=== PATIENT | female | born 1975 | race African-American/Black ===

== ENCOUNTER 2021-05-01 14:26 | Emergency (ER) | payer MEDICAID ==
[~2021-05-01] VITALS: Ht 167.6 cm; Wt 82.1 kg
[2021-05-01 14:26] VITALS: BP 120/85
== END 2021-05-01 18:27 | disposition left against medical advice (07) ==
LOC: ER 14:26
DX: F41.9 Anxiety disorder, unspecified (principal); Z53.21 Procedure and treatment not carried out due to patient leaving prior to being seen by health care provider

== ENCOUNTER 2021-11-09 11:46 | Emergency (ER) | payer MEDICAID ==
[~2021-11-09] VITALS: Ht 167.6 cm; Wt 81.6 kg
[2021-11-09] MEDS ORDERED: SODIUM CHLORIDE 0.9% 500 ML IVB ONE (12:00)
[2021-11-09] MEDS ORDERED: diphenhdrAMINE HCL 50 MG/1 ML VL IV ONE (12:00)
[2021-11-09] MEDS ORDERED: LORazepam 2MG/ML-1ML VIAL IV ONE (12:00)
[2021-11-09] MEDS ORDERED: HALOPERIDOL LACTATE 5 MG/ML INJ VIAL IM ONE (12:00)
[2021-11-09 13:17] LABS: Basophils # (auto) 0.1 10 ^3/uL (0-0.2); Eosinophils # (auto) 0 10 ^3/uL (0-0.8); Eosinophils % (auto) 0.2 % (0.0-7.0); Lymphocytes # (auto) 2.3 10 ^3/uL (0.4-5.4); Neutrophils % (auto) 76.5 % (37.0-80.0); Red Cell Distribution Width 17.4 % (11.8-14.3)
[2021-11-09 13:19] LABS: Basophils % (auto) 0.6 % (0.0-2.0); Hemoglobin 9.7 g/dL (12.2-16.2); Lymphocytes % (auto) 15.5 % (10.0-50.0); Mean Corpuscular Hemoglobin 24.5 pg (28.0-32.0); Mean Corpuscular Hgb Conc. 31.2 g/dL (32.0-36.0); Mean Corpuscular Volume 78.6 fL (80.0-100.0); Monocytes # (auto) 1.1 10 ^3/uL (0-1.3); Monocytes % (auto) 7.2 % (0.0-12.0); Neutrophils # (auto) 11.3 10 ^3/uL (1.6-8.6); Red Blood Cells 3.94 10^6/uL (4.0-5.20); White Blood Cell 14.7 10^3/uL (4.4-10.8)
[2021-11-09 13:45] LABS: Acetaminophen < 2.0 ug/mL (10-30); Salicylate 3.6 mg/dL (2.8-20.0)
[2021-11-09 13:46] LABS: Alanine Aminotransferase 22 U/L (13-56); Albumin 3.3 g/dL (3.4-5.0); Anion Gap 7 (5-15); Aspartate Aminotransferase 26 U/L (15-37); BUN/Creatinine Ratio 12.2; Blood Alcohol < 3.0 mg/dL (0-5); Blood Urea Nitrogen 10 mg/dL (7-18); Calcium 8.8 mg/dL (8.5-10.1); Carbon Dioxide 23 mmol/L (21-32); Chloride 113 mmol/L (98-107); GFR African American 97 mL/min; GFR Non-African American 80 mL/min; Glucose 82 mg/dL (74-106); Magnesium 2.1 mg/dL (1.6-2.6); Potassium 3.4 mmol/L (3.5-5.1); Sodium 143 mmol/L (136-145)
[2021-11-09 13:49] LABS: Alkaline Phosphatase 90 U/L (45-117); Bilirubin, Total 0.2 mg/dL (0.2-1.0); Total Protein 6.9 g/dL (6.4-8.2)
[2021-11-09 14:45] LABS: Amphetamine Screen, Urine POSITIVE (NEGATIVE); Barbiturate Scree,Urine NEGATIVE (NEGATIVE); Benzodiazephine Screen, Urine NEGATIVE (NEGATIVE); Cocaine Screen, Urine NEGATIVE (NEGATIVE); Opiate Scree,Urine NEGATIVE (NEGATIVE); Phencyclidine Screen, Urine POSITIVE (NEGATIVE)
[2021-11-09 14:54] LABS: Cannabinoid Screen, Urine POSITIVE (NEGATIVE)
[2021-11-09 14:57] LABS: Urine Bacteria NONE SEEN /hpf (None Seen); Urine Blood TRACE /uL (Negative); Urine Specific Gravity 1.009 (1.001-1.035); Urine WBC <1 /hpf (0 - 5)
[2021-11-09] MEDS ORDERED: KETOROLAC TROMETH 30 MG/ML 1ML VIAL IV ONE (20:30)
[2021-11-10 01:00] VITALS: BP 129/82
== END 2021-11-10 00:48 | disposition home or self-care (01) ==
LOC: EDBD 11:46 → ER 11:46
DX: S80.02XA Contusion of left knee, initial encounter (principal); S80.01XA Contusion of right knee, initial encounter; S20.229A Contusion of unspecified back wall of thorax, initial encounter; T50.901A Poisoning by unspecified drugs, medicaments and biological substances, accidental (unintentional), initial encounter; F12.10 Cannabis abuse, uncomplicated; F15.10 Other stimulant abuse, uncomplicated; I10 Essential (primary) hypertension; Z90.49 Acquired absence of other specified parts of digestive tract; V89.2XXA Person injured in unspecified motor-vehicle accident, traffic, initial encounter; Y93.89 Activity, other specified; Y92.89 Other specified places as the place of occurrence of the external cause; Y99.8 Other external cause status
CPT/HCPCS: 36415; 72131; 73560; 80053; 80307; 80320; 80329; 81001; 81025; 83735; 85025; 93005; 96361; 96372; 96374; 96375; 99285; J1200; J1630; J1885; J2060; J7030

== ENCOUNTER 2021-11-10 03:34 | Emergency (ER) | payer MEDICAID ==
[~2021-11-10] VITALS: Ht 167.6 cm; Wt 72.6 kg
[2021-11-10 07:38] LABS: Acetaminophen < 2.0 ug/mL (10-30); Salicylate 3.2 mg/dL (2.8-20.0)
[2021-11-10 11:25] LABS: Alcohol, Urine < 3.0 mg/dL (0-10); Amphetamine Screen, Urine POSITIVE (NEGATIVE); Barbiturate Scree,Urine NEGATIVE (NEGATIVE); Benzodiazephine Screen, Urine NEGATIVE (NEGATIVE); Cannabinoid Screen, Urine POSITIVE (NEGATIVE); Cocaine Screen, Urine NEGATIVE (NEGATIVE); Opiate Scree,Urine NEGATIVE (NEGATIVE); Phencyclidine Screen, Urine POSITIVE (NEGATIVE)
[2021-11-11] MEDS ORDERED: LORazepam 2MG/ML-1ML VIAL IM ONE (01:00)
[2021-11-11] MEDS ORDERED: SODIUM CHLORIDE 0.9% 1,000 ML IVB ONE (08:45)
[2021-11-11] MEDS ORDERED: SODIUM CHLORIDE 0.9% 1,000 ML IV ONE (08:45)
[2021-11-11] MEDS ORDERED: TETANUS-DIPTH-ACEL PERTUSSIS 0.5ML SYR Tdap IM ONE (09:45)
[2021-11-11 09:46] LABS: Basophils # (auto) 0.1 10 ^3/uL (0-0.2); Monocytes # (auto) 0.9 10 ^3/uL (0-1.3); Neutrophils # (auto) 5.7 10 ^3/uL (1.6-8.6); Nucleated Red Blood Cells % 0.1 %; White Blood Cell 10.3 10^3/uL (4.4-10.8)
[2021-11-11 09:49] LABS: Basophils % (auto) 1.1 % (0.0-2.0); Eosinophils # (auto) 0.3 10 ^3/uL (0-0.8); Eosinophils % (auto) 3.1 % (0.0-7.0); Hematocrit 31.3 % (36.0-46.0); Hemoglobin 9.8 g/dL (12.2-16.2); Lymphocytes # (auto) 3.3 10 ^3/uL (0.4-5.4); Lymphocytes % (auto) 32.1 % (10.0-50.0); Mean Corpuscular Hemoglobin 24.8 pg (28.0-32.0); Mean Corpuscular Hgb Conc. 31.5 g/dL (32.0-36.0); Mean Corpuscular Volume 78.9 fL (80.0-100.0); Monocytes % (auto) 8.4 % (0.0-12.0); Neutrophils % (auto) 55.3 % (37.0-80.0); Red Blood Cells 3.97 10^6/uL (4.0-5.20); Red Cell Distribution Width 18.1 % (11.8-14.3)
[2021-11-11 09:59] LABS: Albumin 2.7 g/dL (3.4-5.0); BUN/Creatinine Ratio 14.1; Calcium 8.2 mg/dL (8.5-10.1); Magnesium 2.5 mg/dL (1.6-2.6); Potassium 3.8 mmol/L (3.5-5.1)
[2021-11-11 10:04] LABS: Bilirubin, Total 0.3 mg/dL (0.2-1.0); Total Protein 6.1 g/dL (6.4-8.2)
[2021-11-11 10:16] LABS: Beta HCG, Quantitative < 1 mlU/mL (1-3); Thyroid Stimulating Hormone 0.38 uIU/mL (0.358-3.74)
[2021-11-11] MEDS ORDERED: LORazepam 0.5 MG TAB PO ONE (20:45)
[2021-11-11] MEDS ORDERED: LORazepam 2MG/ML-1ML VIAL IV ONE (23:45)
[2021-11-12 00:53] LABS: Urine Bacteria NONE SEEN /hpf (None Seen); Urine Blood Negative /uL (Negative); Urine Mucus FEW (None Seen); Urine Specific Gravity 1.022 (1.001-1.035); Urine WBC 8 /hpf (0 - 5)
[2021-11-12] MEDS ORDERED: LORazepam 0.5 MG TAB PO ONE (16:00)
[2021-11-12] MEDS ORDERED: ACETAMINOPHEN 500 MG TAB PO ONE (16:00)
[2021-11-13] MEDS ORDERED: LORazepam 2MG/ML-1ML VIAL IV ONE ×2 (01:45→21:45)
[2021-11-13] MEDS ORDERED: ACETAMINOPHEN 325 MG TAB PO ONE ×2 (21:45→21:46)
[2021-11-13] MEDS ORDERED: LORazepam 2MG/ML-1ML VIAL ONE (21:46)
[2021-11-14 09:38] VITALS: BP 100/73
[2021-11-14] MEDS ORDERED: NITROFURANTOIN 100 mg CAP PO ONE (10:00)
[2021-11-14] MEDS ORDERED: NITROFURANTOIN 100 mg CAP PO SCH (10:37)
== END 2021-11-14 20:10 | disposition left against medical advice (07) ==
LOC: ER 03:34 → EDBD 03:34 → ER 20:21
DX: R45.851 Suicidal ideations (principal); I10 Essential (primary) hypertension; F20.9 Schizophrenia, unspecified; F17.210 Nicotine dependence, cigarettes, uncomplicated; Z90.49 Acquired absence of other specified parts of digestive tract; Z20.822 Contact with and (suspected) exposure to COVID-19
CPT/HCPCS: 36415; 71046; 80053; 80307; 80320; 80329; 81001; 83735; 84443; 84484; 84702; 85025; 87426; 90471; 90715; 93005; 96361; 96372; 96374; 96376; 99285; J2060; J7030; 96360

== ENCOUNTER 2022-05-02 22:21 | Emergency (ER) | payer MEDICAID ==
[~2022-05-02] VITALS: Ht 167.6 cm; Wt 68.0 kg
[2022-05-02 23:52] LABS: Eosinophils # (auto) 0.4 10 ^3/uL (0-0.8); Lymphocytes # (auto) 4.3 10 ^3/uL (0.4-5.4); Nucleated Red Blood Cells % 0.1 %; Red Blood Cells 3.88 10^6/uL (4.0-5.20)
[2022-05-02 23:54] LABS: Basophils # (auto) 0.2 10 ^3/uL (0-0.2); Basophils % (auto) 1.5 % (0.0-2.0); Hematocrit 28.8 % (36.0-46.0); Hemoglobin 8.7 g/dL (12.2-16.2); Lymphocytes % (auto) 36.1 % (10.0-50.0); Mean Corpuscular Hemoglobin 22.4 pg (28.0-32.0); Mean Corpuscular Hgb Conc. 30.2 g/dL (32.0-36.0); Mean Corpuscular Volume 74.1 fL (80.0-100.0); Monocytes # (auto) 0.8 10 ^3/uL (0-1.3); Monocytes % (auto) 6.9 % (0.0-12.0); Neutrophils # (auto) 6.3 10 ^3/uL (1.6-8.6); Neutrophils % (auto) 52.5 % (37.0-80.0)
[2022-05-03] LABS: Red Cell Distribution Width 20.4 % (11.8-14.3)
[2022-05-03 00:02] LABS: BUN/Creatinine Ratio 4.5; Calcium 8.6 mg/dL (8.5-10.1); Potassium 3.9 mmol/L (3.5-5.1)
[2022-05-03 00:05] LABS: Bilirubin, Total 0.2 mg/dL (0.2-1.0); Total Protein 6.2 g/dL (6.4-8.2)
[2022-05-03] MEDS ORDERED: cefTRIAXone SOD 1,000 MG VL IM ONE (01:30)
[2022-05-03] MEDS ORDERED: HYDROcodone-ACET 10/325MG TAB PO ONE (01:30)
[2022-05-03 03:00] VITALS: BP 146/97
== END 2022-05-03 03:12 | disposition home or self-care (01) ==
LOC: EDBD 22:21 → ER 22:22
DX: R07.89 Other chest pain (principal); G89.4 Chronic pain syndrome; I10 Essential (primary) hypertension; F17.210 Nicotine dependence, cigarettes, uncomplicated; F12.10 Cannabis abuse, uncomplicated; F15.10 Other stimulant abuse, uncomplicated; Z98.51 Tubal ligation status
CPT/HCPCS: 36415; 71045; 80053; 84484; 85025; 93005; 96372; 99285; J0696

== ENCOUNTER 2023-08-29 17:39 | Inpatient (IN) | payer MEDICAID ==
[~2023-08-29] VITALS: Ht 167.6 cm; Wt 87.1 kg
[2023-08-29] MEDS ORDERED: NALOXONE HCL 1MG/ML 2ML SYRINGE ONE (17:41)
[2023-08-29] MEDS ORDERED: NALOXONE HCL 1MG/ML 2ML SYRINGE IV ONE (17:45)
[2023-08-29 17:49] VITALS: PULSE 93; RESP 17; O2SAT 100
[2023-08-29] MEDS ORDERED: SODIUM CHLORIDE 0.9% 1,000 ML IVB ONE (18:00)
[2023-08-29 19:30] VITALS: PULSE 98; RESP 14; O2SAT 98
[2023-08-29 20:21] LABS: Basophils # (auto) 0.3 10 ^3/uL (0-0.2); Basophils % (auto) 2.3 % (0.0-2.0); Eosinophils # (auto) 0.5 10 ^3/uL (0-0.8); Eosinophils % (auto) 4.1 % (0.0-7.0); Hematocrit 25.9 % (36.0-46.0); Hemoglobin 7.7 g/dL (12.2-16.2); Lymphocytes # (auto) 2.6 10 ^3/uL (0.4-5.4); Lymphocytes % (auto) 21.7 % (10.0-50.0); Mean Corpuscular Hemoglobin 20.3 pg (28.0-32.0); Mean Corpuscular Hgb Conc. 29.9 g/dL (32.0-36.0); Mean Corpuscular Volume 67.9 fL (80.0-100.0); Monocytes # (auto) 1.1 10 ^3/uL (0-1.3); Monocytes % (auto) 9.2 % (0.0-12.0); Neutrophils # (auto) 7.5 10 ^3/uL (1.6-8.6); Neutrophils % (auto) 62.7 % (37.0-80.0); Nucleated Red Blood Cells % 0.2 %; Red Blood Cells 3.81 10^6/uL (4.0-5.20); White Blood Cell 11.9 10^3/uL (4.4-10.8)
[2023-08-29 20:22] LABS: Red Cell Distribution Width 22.9 % (11.8-14.3)
[2023-08-29 20:29] LABS: INR 0.98 (0.9-1.15); Partial Thromboplastin Time 24.2 SEC (24.5-34.5); Prothrombin Time 10.3 sec (9.3-11.8)
[2023-08-29 20:31] LABS: Alanine Aminotransferase 13 U/L (7-40); Albumin 4.5 g/dL (3.2-4.8); Alkaline Phosphatase 87 U/L (46-116); Anion Gap 6 (5-15); Aspartate Aminotransferase 20 U/L (13-40); BUN/Creatinine Ratio 16.2 (10.0-20.0); Blood Alcohol < 3.0 mg/dL (<10); Blood Urea Nitrogen 16 mg/dL (9-23); Calcium 9.4 mg/dL (8.7-10.4); Carbon Dioxide 24 mmol/L (20-30); Chloride 109 mmol/L (98-107); Glucose 94 mg/dL (74-106); Potassium 4.4 mmol/L (3.5-5.1); Sodium 139 mmol/L (136-145)
[2023-08-29 20:32] LABS: Bilirubin, Total 0.2 mg/dL (0.2-1.0); Total Protein 7.1 g/dL (5.7-8.2)
[2023-08-29 20:36] LABS: Platelet Estimate Increased
[2023-08-29 20:37] LABS: Ovalocytes MODERATE
[2023-08-29 20:39] LABS: Hypochromia Marked; Target Cell FEW
[2023-08-29 20:40] LABS: Anisocytosis Slight
[2023-08-29] MEDS ORDERED: ACETAMINOPHEN 325 MG TAB PO PRN (22:15)
[2023-08-29] MEDS ORDERED: DOCUSATE SOD 100 MG CAP PO PRN (22:15)
[2023-08-29] MEDS ORDERED: ONDANSETRON HCL 4 MG/2 ML VIAL IV PRN (22:15)
[2023-08-29] MEDS: HYDROcodone-ACET 5/325MG TAB PO PRN (23:04)
[2023-08-30] VITALS (8 sets, daily range): BP systolic 103–140; BP diastolic 47–79; PULSE 74–100; RESP 17–20; TEMP 98–98.6; O2SAT 95–100
[2023-08-30 00:31] LABS: Amphetamine Screen, Urine Pos (NEGATIVE); Barbiturate Scree,Urine Neg (NEGATIVE); Benzodiazephine Screen, Urine Neg (NEGATIVE); Cannabinoid Screen, Urine Pos (NEGATIVE); Cocaine Screen, Urine Neg (NEGATIVE); Opiate Scree,Urine Neg (NEGATIVE); Phencyclidine Screen, Urine Pos (NEGATIVE)
[2023-08-30 00:37] LABS: Urine Bacteria NONE SEEN /hpf (None Seen); Urine Blood 2+ /uL (Negative); Urine Clarity Clear (Clear); Urine Color Yellow (Yellow); Urine Mucus FEW (None Seen); Urine Protein, UAD Negative (Negative); Urine Specific Gravity 1.018 (1.001-1.035); Urine Urobilinogen Normal (Negative); Urine WBC <1 /hpf (0 - 5); Urine pH 5.5 (5.0-8.0)
[2023-08-30 03:47] LABS: Rapid Influenza A Negative (Negative); Rapid Influenza B Negative (Negative)
[2023-08-30] MEDS ORDERED: IOHEXOL 350 MG/ML 100ML IJ ONE (03:47)
[2023-08-30 03:48] LABS: COVID19 ANTIGEN SOFIA FIA NEGATIVE (NEGATIVE)
[2023-08-30] MEDS: SODIUM CHLOR 0.9% PF (SALINE LOCK) 10ML VIAL/SYR IV SCH ×3 (06:51→22:03)
[2023-08-30] MEDS: ENOXAPARIN SOD 40 MG/0.4 ML SYRINGE SC SCH (10:00)
[2023-08-30] MEDS: HYDROcodone-ACET 5/325MG TAB PO PRN ×2 (12:33→20:55)
[2023-08-30] MEDS ORDERED: IRON SUCROSE COMPLEX 100 ML IV SCH (13:00)
[2023-08-30] MEDS ORDERED: SODIUM FERR GLUC 62.5MG/5ML 125 MG in SODIUM CHL 0.9% 100 ML IV SCH (14:00)
[2023-08-30 14:08] LABS: % Iron Saturation 3.8 % (15-50)
[2023-08-31 05:00] VITALS: BP 114/61; PULSE 67; RESP 19; TEMP 97.6; O2SAT 96
[2023-08-31] MEDS: HYDROcodone-ACET 5/325MG TAB PO PRN (06:12)
[2023-08-31] MEDS: SODIUM CHLOR 0.9% PF (SALINE LOCK) 10ML VIAL/SYR IV SCH ×2 (06:19→14:00)
[2023-08-31 07:45] VITALS: PULSE 75
[2023-08-31] MEDS ORDERED: ASPI-543 PO (08:40)
[2023-08-31] MEDS ORDERED: GABA-339 PO (08:40)
[2023-08-31] MEDS ORDERED: ENAL1TAB42 PO (08:40)
[2023-08-31] MEDS ORDERED: HYDR-4798 PO (08:40)
[2023-08-31] MEDS ORDERED: OLAN20TA PO (08:40)
[2023-08-31 09:00] VITALS: BP 98/52; PULSE 78; RESP 16; TEMP 98.6; O2SAT 97
[2023-08-31] MEDS ORDERED: OLANZapine 5 MG TAB PO SCH (10:00)
[2023-08-31] MEDS ORDERED: ASPirin 81 mg TAB PO SCH (10:00)
[2023-08-31] MEDS: ENOXAPARIN SOD 40 MG/0.4 ML SYRINGE SC SCH (10:00)
[2023-08-31] MEDS ORDERED: FERR-7 PO (11:02)
[2023-08-31] MEDS ORDERED: ASPI1TAB20 PO (11:02)
== END 2023-08-31 14:30 | disposition home or self-care (01) | DRG 812 ==
LOC: ER 17:39 → TELE 22:29 → TELE-WESTW 08-30 09:03
PROVIDERS: ADMIT Internal Medicine; ATTEND Nurse Practitioner Acute Care
DX: T50.991A Poisoning by other drugs, medicaments and biological substances, accidental (unintentional), initial encounter (principal); G92.8 Other toxic encephalopathy; D50.9 Iron deficiency anemia, unspecified; F17.210 Nicotine dependence, cigarettes, uncomplicated; F20.9 Schizophrenia, unspecified; D25.9 Leiomyoma of uterus, unspecified; G89.4 Chronic pain syndrome; I10 Essential (primary) hypertension; Z20.822 Contact with and (suspected) exposure to COVID-19; F41.9 Anxiety disorder, unspecified; Z90.49 Acquired absence of other specified parts of digestive tract; Z86.73 Personal history of transient ischemic attack (TIA), and cerebral infarction without residual deficits; Z79.891 Long term (current) use of opiate analgesic; Y92.89 Other specified places as the place of occurrence of the external cause; Z79.82 Long term (current) use of aspirin
CPT/HCPCS: 36415; 70450; 70551; 71045; 71275; 80053; 80307; 80320; 81001; 81025; 83540; 83550; 83605; 83735; 83880; 84484; 85025; 85379; 85610; 85730; 87040; 87426; 87804; 93005; 93306; 93886; 96361; 96374; G0378

== ENCOUNTER 2025-01-19 17:59 | Emergency (ER) | payer MEDICAID, OTHER ==
[~2025-01-19] VITALS: Ht 167.6 cm; Wt 75.6 kg
[~2025-01-19 17:59] MED LIST: ASPI-543 PO; ASPI1TAB20 PO; ENAL1TAB42 PO; FERR-7 PO; GABA-339 PO; HYDR-4798 PO; OLAN20TA PO
[2025-01-19 20:23] VITALS: BP 150/96; TEMP 98
[2025-01-19 20:25] VITALS: PULSE 75; RESP 16; O2SAT 100
--- NOTE | 2025-01-19 21:07 | DVH ---
CHEST RADIOGRAPH Indication: SOB Technique: Frontal and lateral view of the chest was obtained Comparison: CHEST TWO VIEWS ROUTINE on DOS: 08/29/2023 FINDINGS: Lines and Tubes: None Lungs: Clear Pleura: No effusion. No pneumothorax. Cardiomediastinal contours: Unremarkable Bones: Unremarkable IMPRESSION: No abnormality demonstrated.
--- NOTE | 2025-01-19 21:26 | ED.PDOC ---
Eye-HPI HPI Comments REPORTS HAVING A LEFT EARACHE X 2 DAYS AND A PRODUCTIVE COUGH FOR ABOUT 1 WEEK. AFEBRILE. NO RESPIRATORY DISTRESS NOTED. DENIES DIFFICULTY BREATHING, CHEST PAIN, NAUSEA, VOMITING, DIARRHEA, RECENT TRAVEL OR KNOWN ILL CONTACTS. Chief Complaint: Earache Time Seen by MD: 18:15 Primary Care Provider: GLEN Reviewed Notes: Nurses Notes, Medications, Allergies Allergies: Coded Allergies: No Known Drug Allergy (Verified Allergy, Unknown, 05/01/21) Home Meds Active Scripts Cefdinir (Cefdinir) 300 Mg Cap, 1 CAP PO BID for 7 Days, #14 CAP Prov:APOLONIA ZUÑIGAP 01/19/25 Methylprednisolone (Medrol Dosepak) 4 Mg Dustin, 4 MG PO UD for 6 Days, #21 TAB UAD Prov:APOLONIA ZUÑIGA BRAKE ENGINEER 01/19/25 Ferrous Sulfate (Iron) 325 Mg Tab, 325 MG PO BID for 60 Days, #120 TAB Prov:DEVIN LADD GROUND WATER PUMP INSTALLER 08/31/23 Aspirin (Aspir-81) 81 Mg Tab, 1 TAB PO DAILY, #90 TAB 1 Refill Prov:DEVIN LADD GROUND WATER PUMP INSTALLER 08/31/23 Reported Medications Enalapril Maleate (Enalapril Maleate) 2.5 Mg Tab, 10 MG PO DAILY for 30 Days, MG 08/31/23 Aspirin (Aspir-Low) 81 Mg Tab, 81 MG PO DAILY for 30 Days, MG 08/31/23 Olanzapine (Zyprexa) 20 Mg Tab, 10 MG PO DAILY, TAB 08/31/23 Hydrocodone-Acetaminophen (Hydrocodone Bitartrate/AC 10-325 mg) 1 Tab Tab, 1 TAB PO TID, TAB 08/31/23 Gabapentin (Gabapentin) 600 Mg Tab, 800 MG PO for 30 Days, MG 08/31/23 Information Source: Patient Mode of Arrival: EMS Past Medical History PAST MEDICAL HISTORY: Anxiety, CVA, HTN, Schizophrenia Surgical History: Appendectomy, BTL, STUDENT SERVICES DEAN History: No Pertinent STUDENT SERVICES DEAN History Family History Family History: Unknown Social History Smoker: Cigarettes Alcohol: Occasionally Drugs: Marijuana, Methamphetamine, Other Lives In: Unknown Constitutional: denies: chills, diaphoresis, fatigue, fever, malaise, sweats, weakness, others EENTM: reports: ear pain; denies: blurred vision, double vision, ear bleeding, ear discharge, ear drainage, ear ringing, eye pain, eye redness, hearing loss, mouth pain, mouth swelling, nasal discharge, nose bleeding, nose congestion, nose pain, photophobia, tearing, throat pain, throat swelling, voice changes, others Respiratory: reports: cough; denies: hemoptysis, orthopnea, SOB at rest, shortness of breath, SOB with excertion, stridor, wheezing, others Cardiovascular: denies: chest pain, dizzy spells, diaphoresis, Dyspnea on exertion, edema, irregular heart beat, left arm pain, lightheadedness, palpitations, PND, syncope, others Gastrointestinal: denies: abdomen distended, abdominal pain, blood streaked bowels, constipated, diarrhea, dysphagia, difficulty swallowing, hematemesis, melena, nausea, poor appetite, poor fluid intake, rectal bleeding, rectal pain, vomiting, others Genitourinary: denies: abnormal vagina bleeding, burning, dyspareunia, dysuria, flank pain, frequency, hematuria, incontinence, pain, , vagina discharge, urgency, others Neurological: denies: dizziness, fainting, headache, left sided numbness, left sided weakness, numbness, paresthesia, pre-existing deficit, right sided numbness, right sided weakness, seizure, speech problems, tingling, tremors, weakness, others Musculoskeletal: denies: back pain, gout, joint pain, joint swelling, muscle pain, muscle stiffness, neck pain, others Integumetry: denies: bruises, change in color, change in hair/nails, dryness, laceration, lesions, lumps, rash, wounds, others Allergic/Immunocompromised: denies: Difficulty Healing, Frequent Infections, Hives, Itching, others Hematologic/Lymphatic: denies: anemia, blood clots, easy bleeding, easy bruising, swollen glands, others Endocrine: denies: excessive hunger, excessive sweating, excessive thirst, excessive urination, flushing, intolerance to cold, intolerance to heat, unex plained weight gain, unexplained weight loss, others Psychiatric: denies: anxiety, bipolar disorder, depression, hopeless, panic disorder, schizophrenia, sleepless, suicidal, others Physical Exam General Appearance: No Apparent Distress, Normal HEENT: Pharynx Normal, TMs Normal, Other (LEFT EAR CANAL WITH MODERATE EDEMA AND ERYTHEMA TM INTACT) Neck: Full Range of Motion, Non-Tender, Normal, Normal Inspection Respiratory: Chest Non-Tender, Lungs Clear, No Accessory Muscle Use, No Respiratory Distress, Normal Breath Sounds Cardiovascular: No Edema, No JVD, No Murmur, No Gallop, Normal Peripheral Pulses, Regular Rate/Rhythm Breast Exam: Deferred Gastrointestinal: No Organomegaly, Non Tender, No Pulsatile Mass, Normal Bowel Sounds, Soft Genitalia: Deferred Pelvic: Deferred Rectal: Deferred Extremities: No calf tenderness, Normal capillary refill, Normal inspection, No rmal range of motion, Non-tender, No pedal edema Musculoskeletal : Apperance: Normal Neurologic: Alert, apprentice instrument technician II-XII nml as Tested, No Motor Deficits, Normal Affect, Normal Mood, No Sensory Deficits Cerebellar Function: Normal Reflexes: Normal Skin: Dry, Normal Color, Warm Lymphatic: No Adenopathy Was a procedure done? Was a procedure done?: No EENT DIFF Eye: N/A Ear: Otitis Media, Perforation, Dental, Sinusitis Sore Throat: Peritonsillar Abscess, Peritonsillar Cellulitis, Pharyngitis, Streptococcal, Viral Pharyngitis, URI X-Ray, Labs, Meds, VS Vital Signs Date Time Temp Pulse Resp B/P (MAP) Pulse Ox O2 Delivery O2 Flow Rate FiO2 01/19/25 20:25 75 16 100 Room Air 01/19/25 20:23 98.0 79 16 150/96 (114) 100 98.0 01/19/25 18:07 98.4 86 16 158/92 (114) 100 98.4 Current Medications Medications (Trade) Dose Ordered Sig/Mj Route Start Time Stop Time Status Last Admin Ceftriaxone Sodium (Rocephin) 1,000 mg ONCE ONCE IM 01/19/25 21:30 01/19/25 21:31 DC 01/19/25 21:38 Dexamethasone Sodium Phosphate (Decadron Injection) 10 mg ONCE ONCE IM 01/19/25 21:30 01/19/25 21:31 DC 01/19/25 21:38 X-Ray, Labs, Meds, VS Comment X-RAY SHOWS NO ACUTE OR CHRONIC CARDIOPULMONARY FINDINGS. PATIENT GIVEN 1 G ROCEPHIN AND 10 MG IM DECADRON 4 LEFT EAR CANAL EDEMA AND ERYTHEMA. TRIAL OF CEFDINIR ADVISED TO TAKE MEDICATIONS PRESCRIBED SIDE EFFECTS DISCUSSED. [id number] TYLENOL OR MOTRIN NEEDED FOR THE PAIN PER LABELED DOSING INSTRUCTIONS. ADVISED TO FOLLOW UP WITH HER PCP IN 2-3 DAYS NECESSARY. AVOID ANY UNDER WATER ACTIVITIES WHILE WITH INFECTION. RETURN PRECAUTIONS GIVEN PATIENT INDICATES UNDERSTANDING AGREES WITH DISCHARGE PLAN OF CARE. Time of 1ST Reevaluation: 19:30 Reevaluation 1ST: Unchanged Time of 2ND Reevaluation: 21:20 Reevaluation 2ND: Improved Patient Education/Counseling: Diagnosis, Treatment, Prognosis, Need For Follow Up Family Education/Counseling: No Family Present Departure 1 Departure Time of Disposition: 21:29 Impression: Primary Impression: Otitis externa of left ear Qualified Codes: H60.312 - Diffuse otitis externa, left ear Disposition: HOME / SELF CARE / HOMELESS Condition: Stable e-Prescriptions Cefdinir (Cefdinir) 300 Mg Cap 1 CAP PO BID for 7 Days, #14 CAP Prov: APOLONIA ZUÑIGA 01/19/25 Methylprednisolone (Medrol Dosepak) 4 Mg Dustin 4 MG PO UD for 6 Days, #21 TAB UAD Prov: APOLONIA ZUÑIGA 01/19/25 Discharged With: Self Critical Care Note Critical Care Time?: No Stability Stability form required: No APOLONIA ZUÑIGA January 19, 2025 21:26
[2025-01-19] MEDS ORDERED: METH4PAK PO (21:31)
[2025-01-19] MEDS ORDERED: CEFD300C2 PO (21:31)
[2025-01-19] MEDS: cefTRIAXone SOD 1,000 MG VL IM ONE (21:38)
[2025-01-19] MEDS: DexAMETHasone SOD PHOS 10MG/1ML VIAL INJ IM ONE (21:38)
== END 2025-01-19 21:56 | disposition home or self-care (01) ==
LOC: EDBD 17:59 → ER 18:04
DX: H60.92 Unspecified otitis externa, left ear (principal); F20.9 Schizophrenia, unspecified; F41.9 Anxiety disorder, unspecified; I10 Essential (primary) hypertension; F17.210 Nicotine dependence, cigarettes, uncomplicated; F12.90 Cannabis use, unspecified, uncomplicated; Z98.51 Tubal ligation status; Z79.899 Other long term (current) drug therapy
CPT/HCPCS: 71046; 96372; 99284; J0696; J1100

== ENCOUNTER 2025-06-06 18:07 | Inpatient (IN) | payer OTHER ==
[~2025-06-06] VITALS: Ht 167.6 cm; Wt 80.7 kg
[2025-06-06] MEDS: SODIUM CHLORIDE 0.9% 1,000 ML IV ONE ×2 (18:37→21:30)
--- NOTE | 2025-06-06 18:38 | ED.PDOC ---
History of Present Illness HPI Comments 49-year-old female who came to ER via EMS for nausea and vomiting. Patient is a poor informant. History of schizophrenia polysubstance abuse. Claims she was sent by her primary care provider, because her blood levels were low and that she requires a blood transfusion. Been having episodes of nausea and vomiting. She denies active bleeding. Chief Complaint: Nausea/Vomiting Time Seen by MD: 18:38 Primary Care Provider: GLEN Reviewed Notes: Nurses Notes Allergies: Coded Allergies: No Known Drug Allergy (Verified Allergy, Unknown, 05/01/21) Home Meds Active Scripts Ferrous Sulfate (Iron) 325 Mg Tab, 325 MG PO BID for 60 Days, #120 TAB Prov:DEVIN LADD MAINSPRING WINDER 08/31/23 Aspirin (Aspir-81) 81 Mg Tab, 1 TAB PO DAILY, #90 TAB 1 Refill Prov:DEVIN LADD MAINSPRING WINDER 08/31/23 Reported Medications Enalapril Maleate (Enalapril Maleate) 2.5 Mg Tab, 10 MG PO DAILY for 30 Days, MG 08/31/23 Aspirin (Aspir-Low) 81 Mg Tab, 81 MG PO DAILY for 30 Days, MG 08/31/23 Olanzapine (Zyprexa) 20 Mg Tab, 10 MG PO DAILY, TAB 08/31/23 Hydrocodone-Acetaminophen (Hydrocodone Bitartrate/AC 10-325 mg) 1 Tab Tab, 1 TAB PO TID, TAB 08/31/23 Gabapentin (Gabapentin) 600 Mg Tab, 800 MG PO for 30 Days, MG 08/31/23 Information Source: Patient Mode of Arrival: EMS Severity: Moderate Past Medical History PAST MEDICAL HISTORY: Anxiety, CVA, HTN, Schizophrenia Surgical History: Appendectomy, BTL, MECHATRONICS TECHNOLOGIST History: No Pertinent MECHATRONICS TECHNOLOGIST History Family History Family History: Unknown Social History Smoker: Cigarettes Alcohol: Occasionally Drugs: Marijuana, Methamphetamine, Other (PCP) Lives In: Home Constitutional: denies: chills, diaphoresis, fatigue, fever, malaise, sweats, weakness, others EENTM: denies: blurred vision, double vision, ear bleeding, ear discharge, ear drainage, ear pain, ear ringing, eye pain, eye redness, hearing loss, mouth pain, mouth swelling, nasal discharge, nose bleeding, nose congestion, nose pain, photophobia, tearing, throat pain, throat swelling, voice changes, others Respiratory: denies: cough, hemoptysis, orthopnea, SOB at rest, shortness of breath, SOB with excertion, stridor, wheezing, others Cardiovascular: denies: chest pain, dizzy spells, diaphoresis, Dyspnea on exertion, edema, irregular heart beat, left arm pain, lightheadedness, palpitations, PND, syncope, others Gastrointestinal: reports: nausea, vomiting; denies: abdomen distended, abdominal pain, blood streaked bowels, constipated, diarrhea, dysphagia, difficulty swallowing, hematemesis, melena, poor appetite, poor fluid intake, rectal bleeding, rectal pain, others Genitourinary: denies: abnormal vagina bleeding, burning, dyspareunia, dysuria, flank pain, frequency, hematuria, incontinence, pain, , vagina discharge, urgency, others Neurological: denies: dizziness, fainting, headache, left sided numbness, left sided weakness, numbness, paresthesia, pre-existing deficit, right sided numbness, right sided weakness, seizure, speech problems, tingling, tremors, weakness, others Musculoskeletal: denies: back pain, gout, joint pain, joint swelling, muscle pain, muscle stiffness, neck pain, others Integumetry: denies: bruises, change in color, change in hair/nails, dryness, laceration, lesions, lumps, rash, wounds, others Allergic/Immunocompromised: denies: Difficulty Healing, Frequent Infections, Hives, Itching, others Hematologic/Lymphatic: denies: anemia, blood clots, easy bleeding, easy bruising, swollen glands, others Endocrine: denies: excessive hunger, excessive sweating, excessive thirst, excessive urination, flushing, intolerance to cold, intolerance to heat, unexplained weight gain, unexplained weight loss, others Psychiatric: reports: schizophrenia; denies: anxiety, bipolar disorder, depression, hopeless, panic disorder, sleepless, suicidal, others Physical Exam General Appearance: No Apparent Distress, Normal HEENT: Normal ENT Inspection, Pharynx Normal, TMs Normal Neck: Full Range of Motion, Non-Tender, Normal, Normal Inspection Respiratory: Chest Non-Tender, Lungs Clear, No Accessory Muscle Use, No Respiratory Distress, Normal Breath Sounds Cardiovascular: No Edema, No JVD, No Murmur, No Gallop, Normal Peripheral Pulses, Regular Rate/Rhythm Breast Exam: Deferred Gastrointestinal: No Organomegaly, Non Tender, No Pulsatile Mass, Normal Bowel Sounds, Soft Genitalia: Deferred Pelvic: Deferred Rectal: Deferred Extremities: No calf tenderness, Normal capillary refill, Normal inspection, Normal range of motion, Non-tender, No pedal edema Musculoskeletal : Apperance: Normal Neurologic: Alert, woodworker II-XII nml as Tested, No Motor Deficits, Normal Affect, Normal Mood, No Sensory Deficits Cerebellar Function: Normal Reflexes: Normal Skin: Dry, Normal Color, Warm Lymphatic: No Adenopathy Was a procedure done? Was a procedure done?: No Differential Dx Considerations may include: Anemia, electrolyte imbalance, dehydration, weakness, anxiety X-Ray, Labs, Meds, VS Vital Signs Date Time Temp Pulse Resp B/P (MAP) Pulse Ox O2 Delivery O2 Flow Rate FiO2 06/06/25 20:22 82 16 124/82 06/06/25 18:52 98.0 73 14 100/68 (79) 100 98.0 06/06/25 18:52 14 100 Room Air* 0 21 06/06/25 18:10 97.6 80 20 85/55 95 97.6 Lab Test 06/06/25 19:18 Range/Units White Blood Count 11.2 H 4.4-10.8 10^3/uL Red Blood Count 3.86 L 4.0-5.20 10^6/uL Hemoglobin 6.8 *L 12.2-16.2 g/dL Hematocrit 25.5 L 36.0-46.0 % Mean Corpuscular Volume 66.0 L 80.0-100.0 fL Mean Corpuscular Hemoglobin 17.6 L 28.0-32.0 pg Mean Corpuscular Hemoglobin Concent 26.7 L 32.0-36.0 g/dL Red Cell Distribution Width 23.2 H 11.8-14.3 % Platelet Count 631 H 140-450 10^3/uL Mean Platelet Volume 6.9 6.9-10.8 fL Neutrophils (%) (Auto) 78.2 37.0-80.0 % Lymphocytes (%) (Auto) 14.2 10.0-50.0 % Monocytes (%) (Auto) 5.7 0.0-12.0 % Eosinophils (%) (Auto) 1.5 0.0-7.0 % Basophils (%) (Auto) 0.4 0.0-2.0 % Neutrophils # (Auto) 8.7 H 1.6-8.6 10 ^3/uL Lymphocytes # (Auto) 1.6 0.4-5.4 10 ^3/uL Monocytes # (Auto) 0.6 0-1.3 10 ^3/uL Eosinophils # (Auto) 0.2 0-0.8 10 ^3/uL Basophils # (Auto) 0 0-0.2 10 ^3/uL Nucleated Red Blood Cells 0.1 % Platelet Estimate Increased Hypochromasia (manual) Marked Poikilocytosis (manual) Moderate Anisocytosis (manual) Moderate Microcytosis Marked Prothrombin Time 10.6 9.3-11.8 sec Prothrombin Time INR 1.00 0.9-1.15 Activated Partial Thromboplast Time < 20.0 L 24.5-34.5 SEC Sodium Level 141 136-145 mmol/L Potassium Level 3.7 3.5-5.1 mmol/L Chloride Level 109 H 98-107 mmol/L Carbon Dioxide Level 20 20-31 mmol/L Anion Gap 12 5-15 Blood Urea Nitrogen 10 9-23 mg/dL Creatinine 0.91 0.550-1.02 mg/dL Glomerular Filtration Rate Calc 78 >90 mL/min BUN/Creatinine Ratio 11.0 10.0-20.0 Serum Glucose 107 H 74-106 mg/dL Calcium Level 8.6 L 8.7-10.4 mg/dL Total Bilirubin 0.3 0.2-1.0 mg/dL Aspartate Amino Transferase (AST) 19 13-40 U/L Alanine Aminotransferase (ALT) < 9 7-40 U/L Alkaline Phosphatase 83 46-116 U/L Total Protein 7.1 5.7-8.2 g/dL Albumin 4.1 3.2-4.8 g/dL Current Medications Medications (Trade) Dose Ordered Sig/Mj Route Start Time Stop Time Status Last Admin Sodium Chloride 1,000 ml @ 1,000 mls/hr Q1H ONCE IV 06/06/25 18:30 06/06/25 19:29 DC 06/06/25 18:37 Ondansetron HCl (Zofran) 4 mg ONCE ONCE IV 06/06/25 18:30 06/06/25 18:34 DC 06/06/25 18:39 Morphine Sulfate 4 mg ONCE ONCE IV 06/06/25 19:15 06/06/25 19:16 DC 06/06/25 20:22 Time of 1ST Reevaluation: 18:35 Reevaluation 1ST: Unchanged Patient Education/Counseling: Diagnosis, Treatment Family Education/Counseling: No Family Present SEPSIS Sepsis Screen Date sepsis recognized/suspect: Jun 06, 2025 Time Sepsis recognized/suspect: 1809 Recent Procedure: No On Antibiotic Therapy: No Respiratory Rate >20: No Heart Rate >90: No Temp<36 C (96.8 F) or >38.3 C: No SBP <90 or MAP <65 mmHG: Yes New Acute Mental Status Change: No Is the patient on CPAP, BIPAP,: No Physician Orders Chest Portable (06/06/25 18:30) Ct Ab Pel With Iv Con Only (06/06/25 18:30) Urinalysis (06/06/25 18:30) Test, Urine (06/06/25 18:30) Obtain Consent For: (06/06/25 21:09) Packedcells -Active Bleeding (06/06/25 21:09) Iron Panel (06/06/25 21:09) Obtain Consent For Anesthesia (06/06/25 21:09) Vital Signs Date Time Temp Pulse Resp B/P (MAP) Pulse Ox O2 Delivery O2 Flow Rate FiO2 06/06/25 20:22 82 16 124/82 06/06/25 18:52 98.0 73 14 100/68 (79) 100 98.0 06/06/25 18:52 14 100 Room Air* 0 21 06/06/25 18:10 97.6 80 20 85/55 95 97.6 Laboratory Tests Test 06/06/25 19:18 White Blood Count 11.2 10^3/uL (4.4-10.8) H Medications Medications Dose Ordered Sig/Mj Route Start Time Stop Time Status Last Admin Dose Admin Morphine Sulfate 4 mg ONCE ONCE IV 06/06/25 19:15 06/06/25 19:16 DC 06/06/25 20:22 Ondansetron HCl 4 mg ONCE ONCE IV 06/06/25 18:30 06/06/25 18:34 DC 06/06/25 18:39 Sodium Chloride 1,000 ml @ 1,000 mls/hr Q1H ONCE IV 06/06/25 18:30 06/06/25 19:29 DC 06/06/25 18:37 Departure 1 Departure Time of Disposition: 21:12 Impression: Primary Impression: Severe anemia Additional Impressions: Dysfunctional uterine bleeding Schizophrenia Disposition: ADMITTED INPATIENT Admit to: Med Surg Condition: Guarded Discharged With: Self Comments 49-year-old female with a history of anemia now with generalized weakness. Patient had does say that she has had heavy periods. Lab results do show a severe anemia. CT of the abdomen and pelvis shows an enlarged uterus. I suspect uterine fibroids. Patient will need admission for blood transfusion and OBGYN consultation and stabilization and further workup. Critical Care Note Critical Care Time?: No Stability Stability form required: No Heart Score Heart Score: Heart Score Response (Comments) Value History N/A 0 EKG N/A 0 Age N/A 0 Risk Factors N/A 0 Troponin N/A 0 Total 0 I personally scribed for DEWAYNE SORENSEN MD ([email or web address]) on 06/06/25 at 18:38. Electronically submitted by Chandu Parra ([email or web address]). DEWAYNE SORENSEN MD Jun 06, 2025 18:38
[2025-06-06] MEDS: ONDANSETRON HCL 4 MG/2 ML VIAL IV ONE (18:39)
[2025-06-06 18:52] VITALS: RESP 14; O2SAT 100
[2025-06-06 19:35] LABS: Hematocrit 25.5 % (36.0-46.0); Mean Corpuscular Hemoglobin 17.6 pg (28.0-32.0); Mean Corpuscular Volume 66.0 fL (80.0-100.0); Nucleated Red Blood Cells % 0.1 %
[2025-06-06 19:45] LABS: Hemoglobin 6.8 g/dL (12.2-16.2)
[2025-06-06 19:48] LABS: INR 1.00 (0.9-1.15); Partial Thromboplastin Time < 20.0 SEC (24.5-34.5); Prothrombin Time 10.6 sec (9.3-11.8)
[2025-06-06 19:50] VITALS: O2SAT 98
[2025-06-06 19:51] LABS: Alanine Aminotransferase < 9 U/L (7-40); Albumin 4.1 g/dL (3.2-4.8); Alkaline Phosphatase 83 U/L (46-116); Anion Gap 12 (5-15); BUN/Creatinine Ratio 11.0 (10.0-20.0); Bilirubin, Total 0.3 mg/dL (0.2-1.0); Blood Urea Nitrogen 10 mg/dL (9-23); Calcium 8.6 mg/dL (8.7-10.4); Carbon Dioxide 20 mmol/L (20-31); Chloride 109 mmol/L (98-107); Glucose 107 mg/dL (74-106); Potassium 3.7 mmol/L (3.5-5.1); Sodium 141 mmol/L (136-145); Total Protein 7.1 g/dL (5.7-8.2)
[2025-06-06 20:07] LABS: Anisocytosis Moderate
[2025-06-06] MEDS: MORPHINE SULFATE 4 MG/ML SYR/VIAL IV ONE (20:22)
[2025-06-06] MEDS: IOHEXOL 300 MG/ML 100ML BOTTLE IJ ONE (20:39)
--- NOTE | 2025-06-06 20:53 | DVH ---
CHEST RADIOGRAPH Indication: SOB Technique: Single frontal view of the chest was obtained Comparison: XY CHEST PORTABLE on DOS: 08/29/23, CHEST PORTABLE on DOS: 05/02/22, CXRP on DOS: 05/02/22 FINDINGS: Lines and Tubes: None Lungs: No focal consolidation. Pleura: No effusion. No pneumothorax. Cardiomediastinal contours: Unremarkable Bones: No acute osseous abnormality. IMPRESSION: 1. No acute cardiopulmonary disease. 2. No significant change from 01/19/2025. HS:Y
--- NOTE | 2025-06-06 20:59 | DVH ---
Exam: CT CT AB PEL WITH IV CON ONLY History: abd pain Comparison Study: US PELVIS COMPLETE on DOS: 06/28/24, US PELVIS LIMITED on DOS: 10/06/23 TECHNIQUE: A digital design maker image was obtained. During the uneventful, intravenous administration of c ontrast material, multislice data acquisition was obtained through the abdomen and pelvis. The data s et was subsequently reconstructed into multiplanar reformats. RADIATION DOSE: CTDI vol 16.53 mGy. DLP 986.5 mGy.cm Findings: Evaluation is mildly degraded by motion artifact. Lungs: There is basilar atelectasis/scarring. Liver: Unremarkable. Spleen: Unremarkable. Pancreas: Unremarkable. Gallbladder: Unremarkable. Adrenals: Unremarkable Kidneys: Unremarkable. Pelvic Viscera: Enlarged uterus with thickened and heterogeneous endometrium, suboptimally assessed b y CT. 2.0 cm involuting left adnexal cyst. Vasculature: Atherosclerotic aortoiliac calcification. Retroperitoneum: Unremarkable. Bowel: No bowel obstruction. Musculoskeletal: Unremarkable. Soft tissues: Unremarkable Impression: 1. Enlarged uterus with thickened and heterogeneous endometrium, suboptimally assessed by CT. Pelvic ultrasound or MRI may be beneficial in further assessment.
[2025-06-06] MEDS: SODIUM CHLORIDE 0.9% 1,000 ML IV SCH (21:30)
[2025-06-06] MEDS ORDERED: ONDANSETRON HCL 4 MG/2 ML VIAL IV PRN (21:30)
[2025-06-06] MEDS ORDERED: MORPHINE SULFATE INJ 2 MG/ml SYRG IV PRN (21:30)
[2025-06-06 21:38] LABS: Total Iron Binding Capacity 354.0 ug/dL (250-425)
--- NOTE | 2025-06-06 21:40 | DVHHPRES ---
History of Present Illness Resident Creating Document: CARLOS URRUTIA History of Present Illness Masha Hitchcock is a 49-year-old female patient who presents to ED prompted by primary care physician due to presenting abnormal labs (anemia). Patient reports heavy menstrual periods (normally periods last seven days she uses five thick pads a day), she does present irregular menses, last menstrual period was three weeks ago. Patient is unlikely to be due to bilateral tubal ligation. Patient does report feeling hot flashes. She denies any associated symptoms including fatigue, generalized weakness and dyspnea. 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 Cycles are irregular (can vary from three weeks to three months), her menstruation normally lasts seven days in uses five heavy pads Family history: Breast cancer in mother Social history: Lives in [place] alone. Patient does not want to happened next of kin, she makes her own decisions). Current smoker (approximately 80 pack-year history of smoking). Consumes PCP and occasional marijuana. Denies alcohol and other drug abuse Allergies: Denies Home medication: Enalapril 20 mg p.o. daily, iron Patient seen and examined at bedside. Currently has no new complaints. Past Medical History Per HPI Past Surgical History Per HPI Family History Per HPI Past Social History Per HPI Review of Systems Review of Systems Per HPI Allergies: Coded Allergies: No Known Drug Allergy (Verified Allergy, Unknown, 05/01/21) Medications Current Medications Medications Dose Ordered Sig/Mj Route Start Time Stop Time Status Last Admin Dose Admin Acetaminophen 325 mg Q4HP PRN PO 06/06/25 21:30 UNV Ondansetron HCl 4 mg Q4HP PRN IV 06/06/25 21:30 UNV Morphine Sulfate 2 mg Q4HPRN PRN IV 06/06/25 21:30 UNV Sodium Chloride 1,000 ml @ 75 mls/hr [id number] IV 06/06/25 21:30 UNV Exam Vital Signs Vital Signs Date Time Temp Pulse Resp B/P (MAP) Pulse Ox O2 Delivery O2 Flow Rate FiO2 06/06/25 20:22 82 16 124/82 06/06/25 18:52 98.0 100 98.0 06/06/25 18:52 Room Air* 0 21 Exam Patient lying in bed, in no acute distress General: Lucid, afebrile, mucosae are moist, pale conjunctivae Cardiovascular: Normal S1 and S2, tachycardic. No murmurs, gallops or rubs Respiratory: Normal ventilation mechanics. Clear lung sounds on auscultation Abdomen: Soft, mild minimal tenderness in suprapubic area rest of abdomen nontender, no organomegaly, normal bowel sounds MSK/skin: Mobilizes 4 limbs. Skin is dry and warm Neurological: Oriented in 3 spheres. Left-sided weakness, no other motor no sensitive deficits. Pupils are isocoric and reactive Labs/Xrays Labs Test 06/06/25 19:18 Range/Units White Blood Count 11.2 H 4.4-10.8 10^3/uL Red Blood Count 3.86 L 4.0-5.20 10^6/uL Hemoglobin 6.8 *L 12.2-16.2 g/dL Hematocrit 25.5 L 36.0-46.0 % Mean Corpuscular Volume 66.0 L 80.0-100.0 fL Mean Corpuscular Hemoglobin 17.6 L 28.0-32.0 pg Mean Corpuscular Hemoglobin Concent 26.7 L 32.0-36.0 g/dL Red Cell Distribution Width 23.2 H 11.8-14.3 % Platelet Count 631 H 140-450 10^3/uL Mean Platelet Volume 6.9 6.9-10.8 fL Neutrophils (%) (Auto) 78.2 37.0-80.0 % Lymphocytes (%) (Auto) 14.2 10.0-50.0 % Monocytes (%) (Auto) 5.7 0.0-12.0 % Eosinophils (%) (Auto) 1.5 0.0-7.0 % Basophils (%) (Auto) 0.4 0.0-2.0 % Neutrophils # (Auto) 8.7 H 1.6-8.6 10 ^3/uL Lymphocytes # (Auto) 1.6 0.4-5.4 10 ^3/uL Monocytes # (Auto) 0.6 0-1.3 10 ^3/uL Eosinophils # (Auto) 0.2 0-0.8 10 ^3/uL Basophils # (Auto) 0 0-0.2 10 ^3/uL Nucleated Red Blood Cells 0.1 % Platelet Estimate Increased Hypochromasia (manual) Marked Poikilocytosis (manual) Moderate Anisocytosis (manual) Moderate Microcytosis Marked Prothrombin Time 10.6 9.3-11.8 sec Prothrombin Time INR 1.00 0.9-1.15 Activated Partial Thromboplast Time < 20.0 L 24.5-34.5 SEC Sodium Level 141 136-145 mmol/L Potassium Level 3.7 3.5-5.1 mmol/L Chloride Level 109 H 98-107 mmol/L Carbon Dioxide Level 20 20-31 mmol/L Anion Gap 12 5-15 Blood Urea Nitrogen 10 9-23 mg/dL Creatinine 0.91 0.550-1.02 mg/dL Glomerular Filtration Rate Calc 78 >90 mL/min BUN/Creatinine Ratio 11.0 10.0-20.0 Serum Glucose 107 H 74-106 mg/dL Calcium Level 8.6 L 8.7-10.4 mg/dL Total Bilirubin 0.3 0.2-1.0 mg/dL Aspartate Amino Transferase (AST) 19 13-40 U/L Alanine Aminotransferase (ALT) < 9 7-40 U/L Alkaline Phosphatase 83 46-116 U/L Total Protein 7.1 5.7-8.2 g/dL Albumin 4.1 3.2-4.8 g/dL SEPSIS Sepsis Screen Date sepsis recognized/suspect: Jun 06, 2025 Time Sepsis recognized/suspect: 1809 Recent Procedure: No On Antibiotic Therapy: No Respiratory Rate >20: No Heart Rate >90: No Temp<36 C (96.8 F) or >38.3 C: No SBP <90 or MAP <65 mmHG: Yes New Acute Mental Status Change: No Is the patient on CPAP, BIPAP,: No Physician Orders Chest Portable (06/06/25 18:30) Type And Screen (06/06/25 18:30) Ct Ab Pel With Iv Con Only (06/06/25 18:30) Urinalysis (06/06/25 18:30) Test, Urine (06/06/25 18:30) Obtain Consent For: (06/06/25 21:09) Iron Panel (06/06/25 21:09) Obtain Consent For Anesthesia (06/06/25 21:09) Code Status (06/06/25:28) Acetaminophen Tablet (Tylenol Tablet) (06/06/25 21:30) Ondansetron Hcl (Zofran) (06/06/25 21:30) Complete Blood Count (06/07/25 04:00) Comprehensive Metabolic Panel (06/07/25 04:00) Npo (Nothing By Mouth) Diet (06/07/25 Breakfast) Morphine Sulfate Injection (06/06/25:30) Oxygen By Nasal Cannula (06/06/25:28) Stat Ekg For Chest Pain (06/06/25:) Notify Md Of Changes From Base (06/06/25:) Disease Education Specialist For 24 Hours (06/06/25:) Emergency Dysrhythmia Protocol (06/06/25:) Rhythm Strips Once Every Shift (06/06/25:28) Sodium Chloride 0.9% (06/06/25:30) Sodium Chloride 0.9% (06/06/25:30) Echo 2d Mode Cardiac Dop (06/06/25:28) Admit (06/06/25 21:35) Vital Signs Date Time Temp Pulse Resp B/P (MAP) Pulse Ox O2 Delivery O2 Flow Rate FiO2 06/06/25 20:22 82 16 124/82 06/06/25 18:52 98.0 73 14 100/68 (79) 100 98.0 06/06/25 18:52 14 100 Room Air* 0 21 06/06/25 18:10 97.6 80 20 85/55 95 97.6 Laboratory Tests Test 06/06/25 19:18 White Blood Count 11.2 10^3/uL (4.4-10.8) H Medications Medications Dose Ordered Sig/Mj Route Start Time Stop Time Status Last Admin Dose Admin Morphine Sulfate 4 mg ONCE ONCE IV 06/06/25 19:15 06/06/25 19:16 DC 06/06/25 20:22 4 MG Ondansetron HCl 4 mg ONCE ONCE IV 06/06/25 18:30 06/06/25 18:34 DC 06/06/25 18:39 4 MG Sodium Chloride 1,000 ml @ 1,000 mls/hr Q1H ONCE IV 06/06/25 18:30 10/2/25 19:29 DC 06/06/25 18:37 1,000 MLS/HR Assessment/Plan Assessment/Plan Severe anemia secondary to metrorrhagia Metrorrhagia Oligomenorrhea Questionable perimenopause Completed abdomen and pelvis CT which showed enlarged uterus with thickened and heterogeneous endometrium Ordered pelvic ultrasound. 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 Currently we will not indicate aspirin due to severe anemia with requirement of PRBC transfusion Initiate atorvastatin for secondary prevention. Ordered lipid panel Polysubstance abuse Counseled strongly on cessation for over 16 minutes Ordered UDS Goals of care discussed with patient for over18 minutes: Full code status (patient does not have a next of kin, she does not want to communicate with any family members about her clinical status) Discussed plan with Dr. Mir, patient and nurses: Patient admitted to telemetry due to severe anemia with requirement of blood product transfusion. Probable cause of severe anemia is metrorrhagia, abdomen and pelvis CT shows enlarged uterus with thickened and heterogeneous endometrium, ordered pelvic ultrasound and switching clerk evaluation. Patient has poor prognosis. Plan discussed with: Patient, Other (Nurses) My Orders Orders - CARLOS URRUTIA RESIDENT Procedure Category Date Status Time Code Status CODE 06/06/25 Transmitted 21:28 Acetaminophen Tablet PHA 06/06/25 Logged (Tylenol Tablet) 21:30 Ondansetron Hcl PHA 06/06/25 Logged (Zofran) 21:30 Complete Blood Count LAB 06/07/25 Verified 04:00 Comprehensive LAB 06/07/25 Verified Metabolic Panel 04:00 Npo (Nothing By DIET 06/07/25 Transmitted Mouth) Diet Breakfast Morphine Sulfate PHA 06/06/25 Logged Injection 21:30 Oxygen By Nasal RT 06/06/25 Transmitted Cannula 21:28 Stat Ekg For Chest DAVID 06/06/25 In Process Pain 21:28 Notify Of Changes DAVID 06/06/25 In Process From Base 21:28 Disease Education Specialist For DAVID 06/06/25 In Process 24 Hours 21:28 Emergency Dysrhythmia DAVID 06/06/25 In Process Protocol 21:28 Rhythm Strips Once DAVID 06/06/25 In Process Every Shift 21:28 Sodium Chloride 0.9% PHA 06/06/25 In Process 21:30 Sodium Chloride 0.9% PHA 06/06/25 Logged 21:30 Echo 2d Mode Cardiac US 06/06/25 Logged DOP 21:28 Admit ADMIT 06/06/25 Transmitted 21:35 Date of Service: Jun 06, 2025 Billing Provider: RONNIE KAY MD Common Visit Codes: [id number] INP/OBS CARE (HIGH) Secondary Visit Codes: [id number] CARE PLAN 30 MINUTES CARLOS URRUTIA RESIDENT Jun 06, 2025 21:40
[2025-06-06 21:42] LABS: Iron 177.0 ug/dL (50-170)
[2025-06-06 23:38] LABS: Ferritin 7.2 ng/mL (10-291)
[2025-06-06 23:47] VITALS: RESP 16; O2SAT 98
[2025-06-07] VITALS (12 sets, daily range): BP systolic 101–127; BP diastolic 65–86; PULSE 67–89; RESP 16–17; TEMP 97.8–98.2; O2SAT 98–100
[2025-06-07] MEDS: ACETAMINOPHEN 325 MG TAB PO PRN (00:01)
[2025-06-07] MEDS ORDERED: KEP500T PO (01:02)
[2025-06-07 01:50] LABS: Urine Protein, UAD Negative (Negative)
--- NOTE | 2025-06-07 01:50 | DVH ---
INDICATION: Abnormal uterine bleeding TECHNIQUE: Multiple real-time grayscale transabdominal sonographic images along with color and duplex Doppler of the uterus and ovaries were obtained. COMPARISON: None FINDINGS: The uterus measures 14.3 x 9.4 x 8.0 cm. 9.3 x 8.2 x 7.9 cm hypoechoic mass consistent with uterine fibroid with demonstrated vascularity. The endometrial stripe was not adequately visualized. Right ovary measures 4.2 x 3.0 x 2.4 cm with normal Doppler color flow. Left ovary measures 3.2 x 2.4 x 2.2 cm with normal Doppler color flow. IMPRESSION: 1. Enlarged heterogeneous uterus. 2. 9.3 x 8.2 x 7.9 cm hypoechoic mass consistent with uterine fibroid with demonstrated vascularity.
[2025-06-07 02:06] LABS: Cannabinoid Screen, Urine Pos (NEGATIVE); Opiate Scree,Urine Pos (NEGATIVE)
[2025-06-07 02:07] LABS: Amphetamine Screen, Urine Neg (NEGATIVE); Barbiturate Scree,Urine Neg (NEGATIVE); Benzodiazephine Screen, Urine Neg (NEGATIVE); Cocaine Screen, Urine Neg (NEGATIVE); Phencyclidine Screen, Urine Pos (NEGATIVE)
[2025-06-07] MEDS: MORPHINE SULFATE 4 MG/ML SYR/VIAL IV PRN (04:05)
[2025-06-07 07:00] LABS: Nucleated Red Blood Cells % 0.3 %
[2025-06-07 07:02] LABS: Hematocrit 25.3 % (36.0-46.0); Hemoglobin 7.3 g/dL (12.2-16.2); Mean Corpuscular Hemoglobin 19.8 pg (28.0-32.0); Mean Corpuscular Volume 69.0 fL (80.0-100.0)
[2025-06-07 07:22] LABS: Albumin 3.6 g/dL (3.2-4.8); Alkaline Phosphatase 69 U/L (46-116); Anion Gap 7 (5-15); BUN/Creatinine Ratio 9.3 (10.0-20.0); Carbon Dioxide 21 mmol/L (20-31); Cholesterol 140 mg/dL (< 200); Glucose 77 mg/dL (74-106); Magnesium 2.1 mg/dL (1.6-2.6); Potassium 3.9 mmol/L (3.5-5.1); Sodium 142 mmol/L (136-145); Total Protein 6.4 g/dL (5.7-8.2); Triglycerides 70 mg/dL (< 150)
[2025-06-07 07:23] LABS: Bilirubin, Total 0.8 mg/dL (0.2-1.0); HDL Cholesterol 42 mg/dL (40-59)
[2025-06-07 07:24] LABS: Alanine Aminotransferase < 9 U/L (7-40); Blood Urea Nitrogen 7 mg/dL (9-23); Calcium 8.0 mg/dL (8.7-10.4); Chloride 114 mmol/L (98-107)
[2025-06-07 09:35] LABS: Anisocytosis Moderate
[2025-06-07 09:37] LABS: Ovalocytes MODERATE
--- NOTE | 2025-06-07 13:04 | DVHINCON2 ---
Date of service: Jun 07, 2025 Referring Physician hospitalist Reason for Consultation menorrhagia with anemia History of Present Illness pt is admitted for anemia and menorrhagia.she has long standing hx of aenmia with heavy menses.her last pap was in 2023.pelvic us reveals 14wks size uterus Past Medical History seizures,anemai,htn,stroke Past Surgical History csx2,btl,back surgery and appendectomy Family History na Social History 2cs,1 ,4 sab Patient Family History: FH: breast cancer G8 MOTHER FH: coronary artery disease G8 FATHER Allergies: Coded Allergies: No Known Drug Allergy (Verified Allergy, Unknown, 05/01/21) Home Meds Active Scripts Ferrous Sulfate (Iron) 325 Mg Tab, 325 MG PO BID for 60 Days, #120 TAB Prov:DEVIN LADD IP LITIGATION ASSOCIATE 08/31/23 Aspirin (Aspir-81) 81 Mg Tab, 1 TAB PO DAILY, #90 TAB 1 Refill Prov:DEVIN LADD IP LITIGATION ASSOCIATE 08/31/23 Reported Medications Levetiracetam (KEPPRA TABLET) 500 Mg Tb, 500 MG PO DAILY, TAB 06/07/25 Enalapril Maleate (Enalapril Maleate) 2.5 Mg Tab, 10 MG PO DAILY for 30 Days, MG 08/31/23 Aspirin (Aspir-Low) 81 Mg Tab, 81 MG PO DAILY for 30 Days, MG 08/31/23 Olanzapine (Zyprexa) 20 Mg Tab, 10 MG PO DAILY, TAB 08/31/23 Gabapentin (Gabapentin) 600 Mg Tab, 800 MG PO for 30 Days, MG 08/31/23 Current Medications Current Medications Medications (Trade) Dose Ordered Sig/Mj Route PRN Reason Start Time Stop Time Status Last Admin Acetaminophen (Tylenol Tablet) 325 mg Q4HP PRN PO MILD PAIN (1-3 PAIN SCALE) 06/06/25 21:30 06/07/25 00:01 Ondansetron HCl (Zofran) 4 mg Q4HP PRN IV NAUSEA / VOMITING 06/06/25 21:30 Morphine Sulfate 2 mg Q4HPRN PRN IV SEVERE PAIN (7-10 PAIN SCALE) 06/06/25 21:30 06/07/25 03:39 DC Sodium Chloride 1,000 ml @ 75 mls/hr [id number] IV 06/06/25 21:30 06/07/25 04:05 Atorvastatin Calcium (Lipitor) 40 mg HS PO 06/07/25 22:00 Morphine Sulfate 2 mg Q4HPRN PRN IV SEVERE PAIN (7-10 PAIN SCALE) 06/07/25 03:45 06/07/25 09:16 Review of Systems Constitutional: no fever, chill, weight loss HEENT: no eye pain, no hearing loss, no oral lesion, no scleral icterus Heart: no chest pain, no chest pressure Lung: no cough, no dyspnea with exertion Abdomen: see HPI : no pain with urination, normal appearing urine Musculoskeletal: no joint pain, no muscle pain Neurological: no seizure, no loss of sensation, no weakness in extremities Pysch: no depression, no anxiety Derm: no rash, no jaundice Vital Signs Vital Signs Date Time Temp Pulse Resp B/P (MAP) Pulse Ox O2 Delivery O2 Flow Rate FiO2 06/07/25 09:46 65 16 102/64 06/07/25 08:55 98.2 99 98.2 06/06/25 23:47 Room Air* 0 21 Physical Exam HEENT: [nl] NECK: [nl] CARDIAC: [rrr] PULMONARY: [cta] ABDOMEN: [soft,nt ,midline mass c.w fibroid uterus] breasts symmetrical ,no masses pelvic-vag nl,cx nl ,uterus 14wks size,adenxa nt ext no cce Labs/Diagnostic Data Labs Test 06/07/25 06:42 06/07/25 01:16 06/06/25 19:18 Range/Units White Blood Count 7.3 # 4.4-10.8 10^3/uL Red Blood Count 3.67 L 4.0-5.20 10^6/uL Hemoglobin 7.3 L 12.2-16.2 g/dL Hematocrit 25.3 L 36.0-46.0 % Mean Corpuscular Volume 69.0 #L 80.0-100.0 fL Mean Corpuscular Hemoglobin 19.8 L 28.0-32.0 pg Mean Corpuscular Hemoglobin Concent 28.7 L 32.0-36.0 g/dL Red Cell Distribution Width 24.8 H 11.8-14.3 % Platelet Count 554 H 140-450 10^3/uL Mean Platelet Volume 6.8 L 6.9-10.8 fL Neutrophils (%) (Auto) 53.7 37.0-80.0 % Lymphocytes (%) (Auto) 33.4 10.0-50.0 % Monocytes (%) (Auto) 8.7 0.0-12.0 % Eosinophils (%) (Auto) 3.5 0.0-7.0 % Basophils (%) (Auto) 0.7 0.0-2.0 % Neutrophils # (Auto) 3.9 1.6-8.6 10 ^3/uL Lymphocytes # (Auto) 2.4 0.4-5.4 10 ^3/uL Monocytes # (Auto) 0.6 0-1.3 10 ^3/uL Eosinophils # (Auto) 0.3 0-0.8 10 ^3/uL Basophils # (Auto) 0.1 0-0.2 10 ^3/uL Nucleated Red Blood Cells 0.3 % Platelet Estimate Increased Hypochromasia (manual) Marked Poikilocytosis (manual) Moderate Anisocytosis (manual) Moderate Microcytosis Marked Ovalocytes Moderate Kan Cells Many Schistocytes Few Sodium Level 142 136-145 mmol/L Potassium Level 3.9 3.5-5.1 mmol/L Chloride Level 114 H 98-107 mmol/L Carbon Dioxide Level 21 20-31 mmol/L Anion Gap 7 5-15 Blood Urea Nitrogen 7 L 9-23 mg/dL Creatinine 0.75 0.550-1.02 mg/dL Glomerular Filtration Rate Calc 99 >90 mL/min BUN/Creatinine Ratio 9.3 L 10.0-20.0 Serum Glucose 77 74-106 mg/dL Hemoglobin A1c < 3.8 <5.7 % A1C Calcium Level 8.0 L 8.7-10.4 mg/dL Phosphorus Level 3.3 2.4-5.1 mg/dL Magnesium Level 2.1 1.6-2.6 mg/dL Total Bilirubin 0.8 0.2-1.0 mg/dL Aspartate Amino Transferase (AST) 18 13-40 U/L Alanine Aminotransferase (ALT) < 9 7-40 U/L Alkaline Phosphatase 69 46-116 U/L Total Protein 6.4 5.7-8.2 g/dL Albumin 3.6 3.2-4.8 g/dL Triglycerides Level 70 < 150 mg/dL Cholesterol Level 140 < 200 mg/dL LDL Cholesterol 88 < 100 mg/dL HDL Cholesterol 42 40-59 mg/dL Vitamin B12 Level 389 211-911 pg/mL Vitamin D 25-Hydroxy 62.6 30.0-100 ng/mL Thyroid Stimulating Hormone (TSH) 0.88 0.55-4.78 uIU/mL Urine Color Light-yellow Yellow Urine Clarity Clear Clear Urine pH 6.5 5.0-9.0 Urine Specific [place] 1.030 1.001-1.035 Urine Protein Negative Negative Urine Ketones Negative Negative Urine Blood Negative Negative /uL Urine Nitrite Negative Negative Urine Bilirubin Negative Negative Urine Urobilinogen Normal Negative mg/dL Urine Leukocyte Esterase Negative Negative /uL Urine RBC 1 0 - 4 /hpf Urine Microscopic WBC < 1 0-5 /HPF Urine Squamous Epithelial Cells Few <5 /hpf Urine Bacteria Few H None Seen /hpf Urine Glucose Normal Normal mg/dL Urine Test Negative Negative Urine Opiates Screen Pos NEGATIVE Urine Fentanyl Screen Neg NEGATIVE Urine Barbiturates Screen Neg NEGATIVE Urine Phencyclidine Screen Pos NEGATIVE Urine Amphetamines Screen Neg NEGATIVE Urine Benzodiazepines Screen Neg NEGATIVE Urine Cocaine Screen Neg NEGATIVE Urine Cannabinoids Screen Pos NEGATIVE Reticulocyte Count (auto) 2.50 H 0.5-1.5 % Prothrombin Time 10.6 9.3-11.8 sec Prothrombin Time INR 1.00 0.9-1.15 Activated Partial Thromboplast Time < 20.0 L 24.5-34.5 SEC Iron Level 177 H 50-170 ug/dL Total Iron Binding Capacity 354 250-425 ug/dL Percent Iron Saturation 50.0 15-50 % Ferritin 7.2 L 10-291 ng/mL Folic Acid 14.02 >5.38 ng/mL Beta HCG, Quantitative 0.3 L 1.5-4.2 mIU/mL Primary Diagnosis menometorrhagia with anemia symptomatic fibroid uterus Plan recommend fu out pt for pap,endometrial biopsy and possible hysterectomy vs uterine artery embolization will sign off thank you Plan discussed with: Patient Visit Coding OBGYN Date of Service: Jun 07, 2025 Billing Provider: ENOC MCNAIR DO PNEUMATIC HOIST OPERATOR Common Visit Codes: [id number] OBS CARE (HIGH) PNEUMATIC HOIST OPERATOR Consultation Codes: [id number] CONSULT <110MIN ENOC MCNAIR DO Jun 07, 2025 13:04
--- NOTE | 2025-06-07 14:03 | DVHPN2 ---
Progress Note - Dictate Date Seen: Jun 07, 2025 Medical Necessity Reason Pt with a Central, PICC or Fol: No vital signs Vital Sign Date Time Temp Pulse Resp B/P (MAP) Pulse Ox O2 Delivery O2 Flow Rate FiO2 06/07/25 13:34 59 18 116/71 06/07/25 08:55 98.2 99 98.2 06/06/25 23:47 Room Air* 0 21 Total Intake and Output 06/06/25 06/06/25 06/07/25 15:00 23:00 07:00 Intake Total 1000 ml 300 ml Balance 1000 ml 300 ml medications Current Medications Medications Dose Ordered Sig/Mj Route Start Time Stop Time Status Last Admin Dose Admin Acetaminophen 325 mg Q4HP PRN PO 06/06/25 21:30 06/07/25 00:01 325 MG Ondansetron HCl 4 mg Q4HP PRN IV 06/06/25 21:30 Sodium Chloride 1,000 ml @ 75 mls/hr [id number] IV 06/06/25 21:30 06/07/25 04:05 75 MLS/HR Atorvastatin Calcium 40 mg HS PO 06/07/25 22:00 Morphine Sulfate 2 mg Q4HPRN PRN IV 06/07/25 03:45 06/07/25 13:34 2 MG objective General Appearance: alert, no distress HEENT: EOMI, PERRLA, normal external inspect of ears, no icterus, no nasal drainage Neck: no carotid bruit, no jugular venous distention (JVD), no lymphadenopathy Chest: normal thorax Respiratory: clear to auscultation, normal air movement Cardiovascular: regular rate and rhythm, no diastolic murmur, no jugular venous distention (JVD), no rub, no systolic murmur Abdominal: soft, no hepatomegaly, no mass, no splenomegaly, no tenderness Genitourinary: grossly normal external Musculoskeletal: no joint tenderness, no swelling Extremities: normal pulses, no calf tenderness, no clubbing, no cyanosis, no edema Skin: no bruising, no jaundice, no rash Neurological: alert, No focal deficit laboratory and microbiology Laboratory Tests 06/07/25 06:42 Test 06/07/25 06:42 Range/Units Serum Glucose 77 74-106 mg/dL Problem List 1. Menorrhagia Monitor, OBGYN consult, daily labs, transfuse to keep hgb > 7, IV fluids 2. Acute on chronic anemia Monitor, IV iron, iron panel, obtain vitamin B12, obtain folic acid, daily labs, PPI, SCD's 3. Uterine Fibroids Monitor, OBGYN consult Assessment/Plan Subjective: Patient is awake and alert. Objective: Patient was found to have acute menorrhagia. Patient has acute on chronic anemia. Vitamin D was 62. Vitamin B12 is 382. Patient received 1 unit of packed red blood cells. Patient was seen by CHIEF OF SURGERY who is recommending outpatient follow-up with possible discussion of ablation versus hysterectomy. IV iron is currently ordered. Plan: Continue current treatment. Plan for discharge in the a.m. Plan discussed with: Patient, Other MICAELA MARTÍNEZ NP Jun 07, 2025 14:03
[2025-06-07] MEDS: IRON SUCROSE COMPLEX 110 ML IV SCH (14:51)
[2025-06-07] MEDS: ATORVASTATIN 20 MG TAB PO SCH (21:31)
[2025-06-08] VITALS (8 sets, daily range): BP systolic 100–118; BP diastolic 62–85; PULSE 63–95; RESP 16–18; TEMP 97.7–98.6; O2SAT 98–100
--- NOTE | 2025-06-08 01:05 | DVHSR ---
APPROVED REPORT EXAM: Two-dimensional and M-mode echocardiogram with Doppler and color Doppler. Blood Pressure: 119/65 mmHg INDICATION Evaluate EF RISK FACTORS Height: 5'6", Weight: 177 DIMENSIONS LVDd4.8 (3.8-5.7cm)LA (2D)4.2 (1.9-4.0cm)Aortic Root3.7 (2.0-3.7cm) LVDs3.4 (2.5-4.0cm)LA (MM) (1.9-4.0cm)Aortic Cusp Exc2.4 (1.5-2.0cm) EF (%) 55.0 (55-70%)Rt. Atrium4.0 (1.9-4.0cm)Asc. Aorta3.9 cm IVSd0.9 (0.7-1.1cm)RV (D)3.9 (1.8-2.4cm) PWd1.0 (0.7-1.1cm) Mitral Valve MitralMitral Stenosis E wave1.09m/sMV Mean GR.mmHg A wave0.59m/sMV Peak GR.mmHg E/A ratio1.82D MVAcm2 DECEL [id number] 1/2 Tim[place] Aortic Valve Aortic ValveAortic Stenosis V11.09m/Brian Mean GR.3mmHg V21.23m/Brian Peak GR.6mmHg LVOT Diameter2.3 (1.8-2.4cm)Doppler AVA3.68cm2 Pulmonic Valve V20.72m/s Tricuspid Valve TR Velocity2.34m/s [id number] Conclusion NORMAL LV EF IS 65% NORMAL VALVES NO EFFUSION NORMAL RV FUNCTION
--- NOTE | 2025-06-08 06:16 | DVHDS2 ---
Discharge Summary Date of Admission Jun 06, 2025 at 21:28 Date of Discharge: Jun 08, 2025 Labs/Diagnostic Data: Laboratory Results Test 06/07/25 06:42 06/07/25 01:16 06/06/25 19:18 White Blood Count 7.3 10^3/uL (4.4-10.8) Red Blood Count 3.67 10^6/uL (4.0-5.20) Hemoglobin 7.3 g/dL (12.2-16.2) Hematocrit 25.3 % (36.0-46.0) Mean Corpuscular Volume 69.0 fL (80.0-100.0) Mean Corpuscular Hemoglobin 19.8 pg (28.0-32.0) Mean Corpuscular Hemoglobin Concent 28.7 g/dL (32.0-36.0) Red Cell Distribution Width 24.8 % (11.8-14.3) Platelet Count 554 10^3/uL (140-450) Mean Platelet Volume 6.8 fL (6.9-10.8) Neutrophils (%) (Auto) 53.7 % (37.0-80.0) Lymphocytes (%) (Auto) 33.4 % (10.0-50.0) Monocytes (%) (Auto) 8.7 % (0.0-12.0) Eosinophils (%) (Auto) 3.5 % (0.0-7.0) Basophils (%) (Auto) 0.7 % (0.0-2.0) Neutrophils # (Auto) 3.9 10 ^3/uL (1.6-8.6) Lymphocytes # (Auto) 2.4 10 ^3/uL (0.4-5.4) Monocytes # (Auto) 0.6 10 ^3/uL (0-1.3) Eosinophils # (Auto) 0.3 10 ^3/uL (0-0.8) Basophils # (Auto) 0.1 10 ^3/uL (0-0.2) Nucleated Red Blood Cells 0.3 % Platelet Estimate Increased Hypochromasia (manual) Marked Poikilocytosis (manual) Moderate Anisocytosis (manual) Moderate Microcytosis Marked Ovalocytes Moderate [place] Cells Many Schistocytes Few Sodium Level 142 mmol/L (136-145) Potassium Level 3.9 mmol/L (3.5-5.1) Chloride Level 114 mmol/L (98-107) Carbon Dioxide Level 21 mmol/L (20-31) Anion Gap 7 (5-15) Blood Urea Nitrogen 7 mg/dL (9-23) Creatinine 0.75 mg/dL (0.550-1.02) Glomerular Filtration Rate Calc 99 mL/min (>90) BUN/Creatinine Ratio 9.3 (10.0-20.0) Serum Glucose 77 mg/dL (74-106) Hemoglobin A1c < 3.8 % A1C (<5.7) Calcium Level 8.0 mg/dL (8.7-10.4) Phosphorus Level 3.3 mg/dL (2.4-5.1) Magnesium Level 2.1 mg/dL (1.6-2.6) Total Bilirubin 0.8 mg/dL (0.2-1.0) Aspartate Amino Transferase (AST) 18 U/L (13-40) Alanine Aminotransferase (ALT) < 9 U/L (7-40) Alkaline Phosphatase 69 U/L (46-116) Total Protein 6.4 g/dL (5.7-8.2) Albumin 3.6 g/dL (3.2-4.8) Triglycerides Level 70 mg/dL (< 150) Cholesterol Level 140 mg/dL (< 200) LDL Cholesterol 88 mg/dL (< 100) HDL Cholesterol 42 mg/dL (40-59) Vitamin B12 Level 389 pg/mL (211-911) Vitamin D 25-Hydroxy 62.6 ng/mL (30.0-100) Thyroid Stimulating Hormone (TSH) 0.88 uIU/mL (0.55-4.78) Urine Color Light-yellow (Yellow) Urine Clarity Clear (Clear) Urine pH 6.5 (5.0-9.0) Urine Specific [place] 1.030 (1.001-1.035) Urine Protein Negative (Negative) Urine Ketones Negative (Negative) Urine Blood Negative /uL (Negative) Urine Nitrite Negative (Negative) Urine Bilirubin Negative (Negative) Urine Urobilinogen Normal mg/dL (Negative) Urine Leukocyte Esterase Negative /uL (Negative) Urine RBC 1 /hpf (0 - 4) Urine Microscopic WBC < 1 /HPF (0-5) Urine Squamous Epithelial Cells Few /hpf (<5) Urine Bacteria Few /hpf (None Seen) Urine Glucose Normal mg/dL (Normal) Urine Test Negative (Negative) Urine Opiates Screen Pos (NEGATIVE) Urine Fentanyl Screen Neg (NEGATIVE) Urine Barbiturates Screen Neg (NEGATIVE) Urine Phencyclidine Screen Pos (NEGATIVE) Urine Amphetamines Screen Neg (NEGATIVE) Urine Benzodiazepines Screen Neg (NEGATIVE) Urine Cocaine Screen Neg (NEGATIVE) Urine Cannabinoids Screen Pos (NEGATIVE) Reticulocyte Count (auto) 2.50 % (0.5-1.5) Prothrombin Time 10.6 sec (9.3-11.8) Prothrombin Time INR 1.00 (0.9-1.15) Activated Partial Thromboplast Time < 20.0 SEC (24.5-34.5) Iron Level 177 ug/dL (50-170) Total Iron Binding Capacity 354 ug/dL (250-425) Percent Iron Saturation 50.0 % (15-50) Ferritin 7.2 ng/mL (10-291) Folic Acid 14.02 ng/mL (>5.38) Beta HCG, Quantitative 0.3 mIU/mL (1.5-4.2) Other Laboratory Tests 06/07/25 06:42 Brief Hx & Hospital Course: Patient was admitted on 06/06/2025 for acute on chronic anemia. Patient has a history of menorrhagia. Patient had pelvic ultrasound done which showed uterine fibroids. WORKERS COMPENSATION MANAGER was consulted. She did state outpatient follow up. Patient received several doses of IV iron. Patient's condition improved and she was cleared for discharge. She was instructed to follow up with her PCP in 1 week and WORKERS COMPENSATION MANAGER outpatient. The patient received proper medical treatment and medications. Vital signs, Imaging and Laboratory Work was monitored. All consults recommendations were followed as provided. There were no complaints or new complaints upon discharge, all questions and concerns were answered. Patient was advised to return to the ER or call 911 if any headaches, dizziness, shortness of breath, chest pain, bleeding, fevers, or worsening of medical condition. Patient/Family was counseled about treatment plan, medications, possible side effects, patientverbalized understanding. All questions were answered to the best of my ability. The patient symptoms improved and they are okay to be DC. Condition at Discharge: Stable Final Diagnosis/Problems List Menorrhagia Acute on chronic anemia Uterine Fibroids Discharge Disposition: Home Discharge Instruct/Medications Scheduled Aspirin (Aspir-Low), 81 MG PO DAILY, (Reported) Aspirin (Aspir-81), 1 TAB PO DAILY Enalapril Maleate (Enalapril Maleate), 10 MG PO DAILY, (Reported) Ferrous Sulfate (Iron), 325 MG PO BID Levetiracetam (Keppra Tablet), 500 MG PO DAILY, (Reported) Olanzapine (Zyprexa), 10 MG PO DAILY, (Reported) Miscellaneous Medications Gabapentin (Gabapentin), 800 MG PO, (Reported) Discharge Statement: "Patient was advised to return to the ER or call 911 if any headaches, dizziness, shortness of breath, chest pain, abdominal pain, bleeding, fevers, or worsening of medical condition. Patient was counseled about treatment plan, medications, possible side effects, patientverbalized understanding. All questions were answered to the best of my ability. This discharge took greater then 30 minutes in planning, reviewing documentation, counseling the patient, and discussing with other team members." ASSESSMENT ASSESSMENT Assessment MICAELA MARTÍNEZ NP Jun 08, 2025 06:16
[2025-06-08 10:15] LABS: Hematocrit 27.1 % (36.0-46.0); Hemoglobin 7.7 g/dL (12.2-16.2)
--- NOTE | 2025-06-08 10:40 | ECG ---
[facility] Test Date: 2025-06-07 Test Time: 07:55:02 Pat Name: YANELIS CHANDLER Department: Respiratoy Room: 0295T Gender: F Director Channel: GRIFFIN : 1975 Requested By: CARLOS URRUTIA Order Number: [id number] Reading MD: Measurements Intervals Lee Rate: 68 P: 46 WA: 168 QRS: 25 QRSD: 83 T: -3 QT: 436 QTc: 464 Interpretive Statements Sinus rhythm Borderline T abnormalities, inferior leads Please click the below link to view image of tracing.
[2025-06-09 01:02] VITALS: BP 135/84; PULSE 76; RESP 16; TEMP 98; O2SAT 99
[2025-06-09 04:31] VITALS: BP 112/74; PULSE 68; RESP 16; TEMP 97.9; O2SAT 98
[2025-06-09 08:00] VITALS: PULSE 79; PULSE 80; O2SAT 96
[2025-06-09] MEDS ORDERED: FERR-7 PO (08:25)
[2025-06-09] MEDS ORDERED: ENAL1TAB42 PO (08:25)
[2025-06-09] MEDS ORDERED: KEP500T PO (08:25)
[2025-06-09] MEDS ORDERED: HYDR-4902 PO (08:26)
--- NOTE | 2025-06-09 08:28 | DVHDS2 ---
Discharge Summary Date of Admission Jun 06, 2025 at 21:28 Date of Discharge: Jun 09, 2025 Labs/Diagnostic Data: Laboratory Results Test 06/08/25 09:50 06/07/25 06:42 06/07/25 01:16 06/06/25 19:18 Hemoglobin 7.7 g/dL (12.2-16.2) Hematocrit 27.1 % (36.0-46.0) White Blood Count 7.3 10^3/uL (4.4-10.8) Red Blood Count 3.67 10^6/uL (4.0-5.20) Mean Corpuscular Volume 69.0 fL (80.0-100.0) Mean Corpuscular Hemoglobin 19.8 pg (28.0-32.0) Mean Corpuscular Hemoglobin Concent 28.7 g/dL (32.0-36.0) Red Cell Distribution Width 24.8 % (11.8-14.3) Platelet Count 554 10^3/uL (140-450) Mean Platelet Volume 6.8 fL (6.9-10.8) Neutrophils (%) (Auto) 53.7 % (37.0-80.0) Lymphocytes (%) (Auto) 33.4 % (10.0-50.0) Monocytes (%) (Auto) 8.7 % (0.0-12.0) Eosinophils (%) (Auto) 3.5 % (0.0-7.0) Basophils (%) (Auto) 0.7 % (0.0-2.0) Neutrophils # (Auto) 3.9 10 ^3/uL (1.6-8.6) Lymphocytes # (Auto) 2.4 10 ^3/uL (0.4-5.4) Monocytes # (Auto) 0.6 10 ^3/uL (0-1.3) Eosinophils # (Auto) 0.3 10 ^3/uL (0-0.8) Basophils # (Auto) 0.1 10 ^3/uL (0-0.2) Nucleated Red Blood Cells 0.3 % Platelet Estimate Increased Hypochromasia (manual) Marked Poikilocytosis (manual) Moderate Anisocytosis (manual) Moderate Microcytosis Marked Ovalocytes Moderate [place] Cells Many Schistocytes Few Haptoglobin 188 mg/dL (42-296) Sodium Level 142 mmol/L (136-145) Potassium Level 3.9 mmol/L (3.5-5.1) Chloride Level 114 mmol/L (98-107) Carbon Dioxide Level 21 mmol/L (20-31) Anion Gap 7 (5-15) Blood Urea Nitrogen 7 mg/dL (9-23) Creatinine 0.75 mg/dL (0.550-1.02) Glomerular Filtration Rate Calc 99 mL/min (>90) BUN/Creatinine Ratio 9.3 (10.0-20.0) Serum Glucose 77 mg/dL (74-106) Hemoglobin A1c < 3.8 % A1C (<5.7) Calcium Level 8.0 mg/dL (8.7-10.4) Phosphorus Level 3.3 mg/dL (2.4-5.1) Magnesium Level 2.1 mg/dL (1.6-2.6) Total Bilirubin 0.8 mg/dL (0.2-1.0) Aspartate Amino Transferase (AST) 18 U/L (13-40) Alanine Aminotransferase (ALT) < 9 U/L (7-40) Alkaline Phosphatase 69 U/L (46-116) Total Protein 6.4 g/dL (5.7-8.2) Albumin 3.6 g/dL (3.2-4.8) Triglycerides Level 70 mg/dL (< 150) Cholesterol Level 140 mg/dL (< 200) LDL Cholesterol 88 mg/dL (< 100) HDL Cholesterol 42 mg/dL (40-59) Vitamin B12 Level 389 pg/mL (211-911) Vitamin D 25-Hydroxy 62.6 ng/mL (30.0-100) Thyroid Stimulating Hormone (TSH) 0.88 uIU/mL (0.55-4.78) Urine Color Light-yellow (Yellow) Urine Clarity Clear (Clear) Urine pH 6.5 (5.0-9.0) Urine Specific [place] 1.030 (1.001-1.035) Urine Protein Negative (Negative) Urine Ketones Negative (Negative) Urine Blood Negative /uL (Negative) Urine Nitrite Negative (Negative) Urine Bilirubin Negative (Negative) Urine Urobilinogen Normal mg/dL (Negative) Urine Leukocyte Esterase Negative /uL (Negative) Urine RBC 1 /hpf (0 - 4) Urine Microscopic WBC < 1 /HPF (0-5) Urine Squamous Epithelial Cells Few /hpf (<5) Urine Bacteria Few /hpf (None Seen) Urine Glucose Normal mg/dL (Normal) Urine Test Negative (Negative) Urine Opiates Screen Pos (NEGATIVE) Urine Fentanyl Screen Neg (NEGATIVE) Urine Barbiturates Screen Neg (NEGATIVE) Urine Phencyclidine Screen Pos (NEGATIVE) Urine Amphetamines Screen Neg (NEGATIVE) Urine Benzodiazepines Screen Neg (NEGATIVE) Urine Cocaine Screen Neg (NEGATIVE) Urine Cannabinoids Screen Pos (NEGATIVE) Reticulocyte Count (auto) 2.50 % (0.5-1.5) Prothrombin Time 10.6 sec (9.3-11.8) Prothrombin Time INR 1.00 (0.9-1.15) Activated Partial Thromboplast Time < 20.0 SEC (24.5-34.5) Iron Level 177 ug/dL (50-170) Total Iron Binding Capacity 354 ug/dL (250-425) Percent Iron Saturation 50.0 % (15-50) Ferritin 7.2 ng/mL (10-291) Folic Acid 14.02 ng/mL (>5.38) Beta HCG, Quantitative 0.3 mIU/mL (1.5-4.2) Other Laboratory Tests 06/08/25 09:50 06/07/25 06:42 Brief Hx & Hospital Course: Patient was admitted on 06/06/2025 for acute on chronic anemia. Patient has a history of menorrhagia. Patient had pelvic ultrasound done which showed uterine fibroids. PELT DROPPER was consulted. She did state outpatient follow up. Patient received several doses of IV iron. Patient's condition improved and she was cleared for discharge. She was instructed to follow up with her PCP in 1 week and will request pain management for chronic pain she claims she has from her prior CVA. Patient will also follow up with PELT DROPPER outpatient. The patient received proper medical treatment and medications. Vital signs, Imaging and Laboratory Work was monitored. All consults recommendations were followed as provided. There were no complaints or new complaints upon discharge, all questions and concerns were answered. Patient was advised to return to the ER or call 911 if any headaches, dizziness, shortness of breath, chest pain, bleeding, fevers, or worsening of medical condition. Patient/Family was counseled about treatment plan, medications, possible side effects, patientverbalized understanding. All questions were answered to the best of my ability. The patient symptoms improved and they are okay to be DC. Condition at Discharge: Stable Final Diagnosis/Problems List Menorrhagia Acute on chronic anemia Uterine Fibroids Discharge Disposition: Home Discharge Instruct/Medications Diet: Cardiac 2g Na,low cholest Activity: No Restrictions, As Tolerated Follow Up/Referral: Obtain referra for OBGYN Scheduled Enalapril Maleate (Enalapril Maleate), 10 MG PO DAILY Ferrous Sulfate (Iron), 325 MG PO BID Levetiracetam (Keppra Tablet), 500 MG PO BID Olanzapine (Zyprexa), 10 MG PO DAILY, (Reported) Scheduled PRN Hydrocodone-Acetaminophen (Hydrocodone Bitartrate/AC 5-325 mg), 1 TAB PO Q8HP PRN Miscellaneous Medications Gabapentin (Gabapentin), 800 MG PO, (Reported) Discontinued Medications Aspirin (Aspir-Low), 81 MG PO DAILY, (Reported) Aspirin (Aspir-81), 1 TAB PO DAILY Discharge Statement: "Patient was advised to return to the ER or call 911 if any headaches, dizziness, shortness of breath, chest pain, abdominal pain, bleeding, fevers, or worsening of medical condition. Patient was counseled about treatment plan, medications, possible side effects, patientverbalized understanding. All questions were answered to the best of my ability. This discharge took greater then 30 minutes in planning, reviewing documentation, counseling the patient, and discussing with other team members." ASSESSMENT ASSESSMENT Hospital Course Patient was admitted on 06/06/2025 for acute on chronic anemia. Patient has a history of menorrhagia. Patient had pelvic ultrasound done which showed uterine fibroids. PELT DROPPER was consulted. She did state outpatient follow up. Patient received several doses of IV iron. Patient's condition improved and she was cleared for discharge. She was instructed to follow up with her PCP in 1 week and PELT DROPPER outpatient. The patient received proper medical treatment and medications. Vital signs, Imaging and Laboratory Work was monitored. All consults recommendations were followed as provided. There were no complaints or new complaints upon discharge, all questions and concerns were answered. Patient was advised to return to the ER or call 911 if any headaches, dizziness, shortness of breath, chest pain, bleeding, fevers, or worsening of medical condition. Patient/Family was counseled about treatment plan, medications, possible side effects, patientverbalized understanding. All questions were answered to the best of my ability. The patient symptoms improved and they are okay to be DC. Assessment Menorrhagia Acute on chronic anemiaUterine Fibroids MICAELA MARTÍNEZ NP Jun 09, 2025 08:28
[2025-06-09 08:41] VITALS: BP 115/81; PULSE 83; RESP 16; TEMP 98.3; O2SAT 98
[2025-06-09 10:07] VITALS: BP 115/84; PULSE 83; RESP 16; TEMP 98.3; O2SAT 98
--- NOTE | 2025-06-09 16:10 | DVHPN2 ---
Progress Note - Dictate Date Seen: Jun 08, 2025 Medical Necessity Reason Pt with a Central, PICC or Fol: No vital signs Vital Sign Date Time Temp Pulse Resp B/P (MAP) Pulse Ox O2 Delivery O2 Flow Rate FiO2 06/09/25 10:07 98.3 83 16 98 06/09/25 08:41 115/81 (92) 06/09/25 08:00 Room Air* 0 21 Total Intake and Output 06/08/25 06/08/25 06/09/25 15:00 23:00 07:00 Intake Total 108 ml 600 ml 800 ml Balance 108 ml 600 ml 800 ml objective General Appearance: alert, no distress HEENT: EOMI, PERRLA, normal external inspect of ears, no icterus, no nasal drainage Neck: no carotid bruit, no jugular venous distention (JVD), no lymphadenopathy Chest: normal thorax Respiratory: clear to auscultation, normal air movement Cardiovascular: regular rate and rhythm, no diastolic murmur, no jugular venous distention (JVD), no rub, no systolic murmur Abdominal: soft, no hepatomegaly, no mass, no splenomegaly, no tenderness Genitourinary: grossly normal external Musculoskeletal: no joint tenderness, no swelling Extremities: normal pulses, no calf tenderness, no clubbing, no cyanosis, no edema Skin: no bruising, no jaundice, no rash Neurological: alert, No focal deficit laboratory and microbiology Laboratory Tests 06/08/25 09:50 06/07/25 06:42 Test 06/07/25 06:42 Range/Units Serum Glucose 77 74-106 mg/dL Problem List 1. Menorrhagia Monitor, OBGYN consult, daily labs, transfuse to keep hgb > 7, IV fluids 2. Acute on chronic anemia Monitor, IV iron, iron panel, obtain vitamin B12, obtain folic acid, daily labs, PPI, SCD's 3. Uterine Fibroids Monitor, OBGYN consult Assessment/Plan Subjective: Patient is awake and alert. Objective: Patient was admitted for acute on chronic anemia. Patient has a history of menorrhagia. Patient had pelvic ultrasound done which showed uterine fibroids. SUPERCHARGER MECHANIC was consulted. She did state outpatient follow up. Patient received several doses of IV iron. Plan: Continue current treatment. Patient will discharge in AM. Patient having uncontrolled pain. Plan discussed with: Patient, Other MICAELA MARTÍNEZ NP Jun 09, 2025 16:10
== END 2025-06-09 11:03 | disposition home or self-care (01) | DRG 663 ==
LOC: EDBD 18:07 → ER 18:15 → OVERFLOW 21:28 → TELE-WESTW 23:15
PROVIDERS: ADMIT Nurse Practitioner; ATTEND Nurse Practitioner
PROC: 30233N1 Transfusion of Nonautologous Red Blood Cells into Peripheral Vein, Percutaneous Approach (ICD-10-PCS; principal; 2025-06-07)
DX: D62 Acute posthemorrhagic anemia (principal); I69.354 Hemiplegia and hemiparesis following cerebral infarction affecting left non-dominant side; D25.9 Leiomyoma of uterus, unspecified; F17.210 Nicotine dependence, cigarettes, uncomplicated; N92.0 Excessive and frequent menstruation with regular cycle; F19.10 Other psychoactive substance abuse, uncomplicated; N91.5 Oligomenorrhea, unspecified; I10 Essential (primary) hypertension; F20.9 Schizophrenia, unspecified; F41.9 Anxiety disorder, unspecified; N93.8 Other specified abnormal uterine and vaginal bleeding; G89.29 Other chronic pain; Z90.49 Acquired absence of other specified parts of digestive tract; Z98.51 Tubal ligation status; Z80.3 Family history of malignant neoplasm of breast; Z82.49 Family history of ischemic heart disease and other diseases of the circulatory system
CPT/HCPCS: 36415; 36430; 71045; 74177; 76856; 80053; 80061; 80307; 81001; 81025; 82306; 82607; 82728; 82746; 83010; 83036; 83540; 83550; 83735; 84100; 84443; 84702; 85014; 85018; 85025; 85045; 85610; 85730; 86850; 86900; 86901; 86920; 93005; 93306; G0378; J1756; J2405